=== PATIENT | female | born 1930 | race Hispanic/Latino ===

== ENCOUNTER 2017-04-20 13:51 | Inpatient (IN) | payer MEDICARE ==
[2017-04-20] MEDS ORDERED: NACL 0.9% 1000 ML 1,000 ML IV ONE (15:59)
--- NOTE | 2017-04-20 16:27 | Emergency Department Report ---
ED General Adult HPI - General Chief complaint: Hyperglycemia Stated complaint: HYPERGLYCEMIA Time Seen by Provider: 04/20/17 15:57 Source: family, EMS Mode of arrival: Stretcher Limitations: No Limitations - History of Present Illness Initial comments: The patient was brought by her family for evaluation of elevated blood sugars. No other information is available at this time. -: unknown Severity scale (0 -10): 0 Associated Symptoms: other (patient unable to provide any meaningful history answers yes or no and very hard of hearing). denies: chest pain (does deny chest pain or any other painful area) - Related Data Home Medications Medication Instructions Recorded Confirmed Last Taken Aspirin [Aspirin BABY CHEW TAB] 81 mg PO QDAY 02/08/15 02/08/15 02/08/15 Calcitriol [Rocaltrol] 0.25 mcg PO QDAY 02/08/15 02/08/15 02/08/15 Melatonin 10 mg PO QHS 02/08/15 02/08/15 02/07/15 Memantine HCl [Namenda Xr] 28 mg PO QDAY 02/08/15 02/08/15 02/08/15 NIFEdipine [NIFEdipine ER] 90 mg PO QDAY 02/08/15 02/08/15 02/08/15 Rivastigmine [Exelon Patch 9.5 mg TD QDAY 02/08/15 02/08/15 02/08/15 9.5mg/24hr] Previous Rx's Medication Instructions Recorded Last Taken Type Ondansetron [Zofran ODT TAB] 4 mg PO Q8HR PRN #20 tab.rapdis 01/11/15 Unknown Rx Amoxicillin/K Clav Tab [Augmentin 1 tab PO Q12HR #6 tab 02/11/15 Unknown Rx 875MG TAB] Metoprolol [Lopressor TAB] 12.5 mg PO BID #60 tablet 02/11/15 Unknown Rx QUEtiapine [SEROquel] 50 mg PO QHS #30 tablet 02/11/15 Unknown Rx Allergies Allergy/AdvReac Type Severity Reaction Status Date / Time No Known Allergies Allergy Verified 01/10/15 23:52 ED Review of Systems ROS: Stated complaint: HYPERGLYCEMIA Other details as noted in HPI Comment: Unobtainable due to pts medical conditions ED Past Medical Hx - Past Medical History Previous Medical History?: Yes Hx Hypertension: Yes Hx Diabetes: Yes Hx Renal Disease: Yes (renal insufficiency) Hx Dementia: Yes (Alzheimer's) Hx HIV: No Additional medical history: high cholesterol. UTI - Surgical History Hx Cholecystectomy: Yes Hx Appendectomy: Yes - Social History Smoking Status: Never Smoker Substance Use Type: None - Medications Home Medications: Home Medications Medication Instructions Recorded Confirmed Last Taken Type Ondansetron [Zofran ODT TAB] 4 mg PO Q8HR PRN #20 tab.rapdis 01/11/15 02/08/15 Unknown Rx Aspirin [Aspirin BABY CHEW TAB] 81 mg PO QDAY 02/08/15 02/08/15 02/08/15 History Calcitriol [Rocaltrol] 0.25 mcg PO QDAY 02/08/15 02/08/15 02/08/15 History Melatonin 10 mg PO QHS 02/08/15 02/08/15 02/07/15 History Memantine HCl [Namenda Xr] 28 mg PO QDAY 02/08/15 02/08/15 02/08/15 History NIFEdipine [NIFEdipine ER] 90 mg PO QDAY 02/08/15 02/08/15 02/08/15 History Rivastigmine [Exelon Patch 9.5 mg TD QDAY 02/08/15 02/08/15 02/08/15 History 9.5mg/24hr] Amoxicillin/K Clav Tab [Augmentin 1 tab PO Q12HR #6 tab 02/11/15 Unknown Rx 875MG TAB] Metoprolol [Lopressor TAB] 12.5 mg PO BID #60 tablet 02/11/15 Unknown Rx QUEtiapine [SEROquel] 50 mg PO QHS #30 tablet 02/11/15 Unknown Rx ED Physical Exam - General Limitations: Altered Mental Status General appearance: alert, in no apparent distress - Head Head exam: Present: atraumatic, normocephalic - Eye Eye exam: Present: normal appearance, PERRL, EOMI. Absent: scleral icterus - ENT ENT exam: Present: mucous membranes moist - Neck Neck exam: Present: normal inspection - Respiratory Respiratory exam: Present: normal lung sounds bilaterally. Absent: respiratory distress - Cardiovascular Cardiovascular Exam: Present: regular rate, normal rhythm. Absent: systolic murmur, diastolic murmur, rubs, gallop - GI/Abdominal GI/Abdominal exam: Present: soft, normal bowel sounds. Absent: distended, tenderness, guarding, rebound, rigid - Extremities Exam Extremities exam: Present: normal inspection, full ROM (reasonable range of motion for age), tenderness, normal capillary refill. Absent: pedal edema, joint swelling, calf tenderness - Back Exam Back exam: Present: normal inspection - Neurological Exam Neurological exam: Present: alert, CN II-XII intact (as testable). Absent: oriented X3 (believe aware that she is in the emergency department), motor sensory deficit - Psychiatric Psychiatric exam: Present: normal affect, normal mood - Skin Skin exam: Present: warm, dry, intact, normal color. Absent: rash ED Course Vital Signs 04/20/17 04/20/17 04/20/17 13:57 14:16 14:17 Temperature 97.6 F 99.2 F Pulse Rate 79 68 74 Respiratory 18 13 16 Rate Blood Pressure 167/63 Blood Pressure 131/54 [Left] O2 Sat by Pulse 94 93 95 Oximetry 04/20/17 04/20/17 14:31 15:10 Temperature Pulse Rate 74 Respiratory 11 L Rate Blood Pressure 134/56 Blood Pressure [Left] O2 Sat by Pulse 93 95 Oximetry - Reevaluation(s) Reevaluation #1: Blood sugar was found to be greater than 500. Workup in progress. Admission is anticipated. Patient apparently is on Levemir and was given 40 units this a.m. Per patient's family. 04/20/17 16:34 Reevaluation #2: Discussed with Dr. Cartwright. Patient be admitted for further care and evaluation. 04/20/17 18:34 ED Medical Decision Making - Lab Data Result diagrams: 04/20/17 16:05 04/20/17 16:05 Laboratory Results - last 24 hr 04/20/17 04/20/17 04/20/17 14:26 16:05 16:05 WBC 17.0 H RBC 3.53 L Hgb 11.0 Hct 34.5 MCV 98 H MCH 31 MCHC 32 RDW 13.8 Plt Count 173 Lymph % (Auto) 6.1 L Hand % (Auto) 5.3 Eos % (Auto) 0.0 Baso % (Auto) 0.2 Lymph # 1.0 L Hand # 0.9 H Eos # 0.0 Baso # 0.0 Seg Neutrophils % 88.4 H Seg Neutrophils # 15.0 H PT INR APTT VBG pH Sodium 139 Potassium 4.3 Chloride 101.0 Carbon Dioxide 24 Anion Gap 18 BUN 56 H Creatinine 2.5 H Estimated GFR 18 BUN/Creatinine Ratio 22.40 Glucose 439 H POC Glucose > 500 H Ketones Quantitative Calcium 9.4 Magnesium Total Bilirubin Direct Bilirubin Indirect Bilirubin AST ALT Alkaline Phosphatase Total Protein Albumin Albumin/Globulin Ratio 04/20/17 04/20/17 04/20/17 16:05 16:05 16:05 WBC RBC Hgb Hct MCV MCH MCHC RDW Plt Count Lymph % (Auto) Hand % (Auto) Eos % (Auto) Baso % (Auto) Lymph # Hand # Eos # Baso # Seg Neutrophils % Seg Neutrophils # PT 16.4 H INR 1.33 H APTT 34.4 VBG pH 7.435 H Sodium Potassium Chloride Carbon Dioxide Anion Gap BUN Creatinine Estimated GFR BUN/Creatinine Ratio Glucose POC Glucose Ketones Quantitative Calcium Magnesium 2.00 Total Bilirubin 0.90 Direct Bilirubin < 0.2 Indirect Bilirubin 0.7 AST 19 ALT 18 Alkaline Phosphatase 79 Total Protein 6.2 L Albumin 3.0 L Albumin/Globulin Ratio 0.9 04/20/17 16:05 WBC RBC Hgb Hct MCV MCH MCHC RDW Plt Count Lymph % (Auto) Hand % (Auto) Eos % (Auto) Baso % (Auto) Lymph # Hand # Eos # Baso # Seg Neutrophils % Seg Neutrophils # PT INR APTT VBG pH Sodium Potassium Chloride Carbon Dioxide Anion Gap BUN Creatinine Estimated GFR BUN/Creatinine Ratio Glucose POC Glucose Ketones Quantitative Negative Calcium Magnesium Total Bilirubin Direct Bilirubin Indirect Bilirubin AST ALT Alkaline Phosphatase Total Protein Albumin Albumin/Globulin Ratio - Radiology Data Radiology results: report reviewed interpreted by me: Chest x-ray shows cardiomegaly. Radiologist states edema versus infectious process in the lower lobes. - Medical Decision Making Patient does appear to have a cardiomyopathy on chest x-ray. CHF/pulmonary edema versus lower lobe pneumonia. She is not having apparent cough or respiratory difficulty. She does have a white count of 17,000. Blood cultures and lactic acid level is pending as well as urinalysis and urine culture. Patient will be treated empirically for bilateral pneumonia/possible sepsis. Critical care attestation.: If time is entered above; I have spent that time in minutes in the direct care of this critically ill patient, excluding procedure time. ED Disposition Clinical Impression: Pulmonary infiltrates Hyperglycemia due to type 2 diabetes mellitus Qualifiers: Diabetes mellitus alf insulin use: with terminal worker use Qualified Code(s): E11.65 - Type 2 diabetes mellitus with hyperglycemia; Z79.4 - longterm (current ) use of insulin Leukocytosis Qualifiers: Leukocytosis type: unspecified Qualified Code(s): D72.829 - Elevated white blood cell count, unspecified Acute on chronic renal failure Qualifiers: Acute renal failure type: unspecified Chronic kidney disease stage: stage 3 ( moderate) Qualified Code(s): N17.9 - Acute kidney failure, unspecified; N18.3 - Chronic kidney disease, stage 3 (moderate) Cardiomyopathy Qualifiers: Cardiomyopathy type: unspecified Qualified Code(s): I42.9 - Cardiomyopathy, unspecified Disposition: DC-09 OP ADMIT IP TO THIS HOSP Is pt being admited?: Yes Does the pt Need Aspirin: Yes Condition: Stable Instructions: Diabetes Mellitus Type 2 in Adults (ED) Referrals: PRIMARY CARE, [Primary Care Provider] - 3-5 Days Time of Disposition: 18:36
[2017-04-20 16:44] LABS: BUN/Creatinine Ratio 22.4; Basophils % (Auto) 0.2 % (0.0-1.8); Calcium 9.4 mg/dL (8.4-10.2); Hematocrit 34.5 % (30.3-42.9); Mean Corpuscular HGB Conc 32 % (30-34); Mean Corpuscular Hemoglobin 31 pg (28-32); Mean Corpuscular Volume 98 fl (79-97); Platelet Count 173 K/mm3 (140-440); Potassium 4.3 mmol/L (3.6-5.0); Red Blood Count 3.53 M/mm3 (3.65-5.03); Red Cell Distribution Width 13.8 % (13.2-15.2)
[2017-04-20 16:48] LABS: Alanine Aminotransferase 18 units/L (7-56); Albumin/Globulin Ratio 0.9 %; Alkaline Phosphatase 79 units/L (35-129); Total Protein 6.2 g/dL (6.3-8.2)
[2017-04-20 16:55] LABS: Bilirubin,Direct < 0.2 mg/dL (0-0.2); Bilirubin,Indirect 0.7 mg/dL
[2017-04-20 16:57] LABS: INR 1.33 (0.87-1.13)
[2017-04-20 16:58] LABS: Partial Thromboplastin Time 34.4 Sec. (24.2-36.6)
--- NOTE | 2017-04-20 17:38 | XRay Report ---
FINAL REPORT EXAM: XR CHEST 1V AP HISTORY: DALY TECHNIQUE: Single-view chest PRIORS: None. FINDINGS: Lung volumes are diminished. There is increased opacity in the lung bases. Heart size is within normal limits. Aortic calcifications are noted. No acute osseous abnormality is identified. IMPRESSION: 1. There is increased opacity in the lung bases. This may be secondary to infection or edema. There may be a component of atelectasis. The appearance may be exaggerated by diminished lung volumes.
[2017-04-20] MEDS ORDERED: BABY ASPIRIN PO ONE (18:37)
--- NOTE | 2017-04-20 18:47 | History and Physical Report ---
History of Present Illness Date of examination: 04/20/17 Date of admission: 04/20/17 Chief complaint: Elevated blood sugars History of present illness: This is an 87-year-old female who presents with significant past medical history diabetes mellitus type 2, hypertension, chronic kidney disease, Alzheimer's dementia and anemia of CKD (baseline creatinine 2.0) with chief complaint of hyperglycemia. Patient reportedly has had elevated blood glucose ranging from 200-400 for the past 2 weeks. All of the history was obtained from the granddaughter who is primary caregiver. Patient has had reportedly no complaints. No fever or chills. No nausea or vomiting. No cough or cold-like symptoms. No headache or visual disturbances. The granddaughter reports that the patient does have frequent UTIs and has been known to have significant hyperglycemia related to this. No chest pain or shortness of breath. Past History Past Medical History: anemia, diabetes, hypertension, renal failure, other ( Alzheimer's dementia) Past Surgical History: No surgical history Social history: no significant social history Family history: no significant family history Medications and Allergies Allergies Allergy/AdvReac Type Severity Reaction Status Date / Time No Known Allergies Allergy Verified 01/10/15 23:52 Home Medications Medication Instructions Recorded Confirmed Last Taken Type Ondansetron [Zofran ODT TAB] 4 mg PO Q8HR PRN #20 tab.rapdis 01/11/15 02/08/15 Unknown Rx Aspirin [Aspirin BABY CHEW TAB] 81 mg PO QDAY 02/08/15 02/08/15 02/08/15 History Calcitriol [Rocaltrol] 0.25 mcg PO QDAY 02/08/15 02/08/15 02/08/15 History Melatonin 10 mg PO QHS 02/08/15 02/08/15 02/07/15 History Memantine HCl [Namenda Xr] 28 mg PO QDAY 02/08/15 02/08/15 02/08/15 History NIFEdipine [NIFEdipine ER] 90 mg PO QDAY 02/08/15 02/08/15 02/08/15 History Rivastigmine [Exelon Patch 9.5 mg TD QDAY 02/08/15 02/08/15 02/08/15 History 9.5mg/24hr] Amoxicillin/K Clav Tab [Augmentin 1 tab PO Q12HR #6 tab 02/11/15 Unknown Rx 875MG TAB] Metoprolol [Lopressor TAB] 12.5 mg PO BID #60 tablet 02/11/15 Unknown Rx QUEtiapine [SEROquel] 50 mg PO QHS #30 tablet 02/11/15 Unknown Rx Active Meds: Active Medications Azithromycin 500 mg/ Sodium (Chloride) 250 mls @ 250 mls/hr IV ONCE ONE Stop: 04/20/17 19:26 Piperacillin Sod/Tazobactam Sod (Zosyn/Ns 3.375gm/50ml) 50 mls @ 100 mls/hr IV Q6HR NATE PRN Reason: Protocol Vancomycin HCl (Vancomycin Pharmacy To Dose) 1 each IV PKCONSULT NATE PRN Reason: Protocol Review of Systems ROS unobtainable: due to mental status Exam - Constitutional Vitals: Temp Pulse Resp BP Pulse Ox 99.2 F 74 11 L 134/56 95 04/20/17 14:17 04/20/17 14:31 04/20/17 14:31 04/20/17 14:31 04/20/17 15:10 General appearance: Present: no acute distress, well-nourished - EENT Eyes: Present: PERRL ENT: hearing intact, clear oral mucosa - Neck Neck: Present: supple, normal ROM - Respiratory Respiratory effort: normal Respiratory: bilateral: CTA - Cardiovascular Heart Sounds: Present: S1 & S2. Absent: rub, click - Extremities Extremities: pulses symmetrical, No edema Peripheral Pulses: within normal limits - Abdominal General gastrointestinal: Present: soft, non-tender, non-distended, normal bowel sounds Female genitourinary: Present: normal - Integumentary Integumentary: Present: clear, warm, dry - Musculoskeletal Musculoskeletal: gait normal, strength equal bilaterally - Psychiatric Psychiatric: appropriate mood/affect, intact judgment & insight - Neurologic Neurologic: CNII-XII intact, moves all extremities Results - Labs CBC & Chem 7: 04/20/17 16:05 04/20/17 16:05 Labs: Laboratory Last Values WBC 17.0 K/mm3 (4.5-11.0) H 04/20/17 16:05 RBC 3.53 M/mm3 (3.65-5.03) L 04/20/17 16:05 Hgb 11.0 gm/dl (10.1-14.3) 04/20/17 16:05 Hct 34.5 % (30.3-42.9) 04/20/17 16:05 MCV 98 fl (79-97) H 04/20/17 16:05 MCH 31 pg (28-32) 04/20/17 16:05 MCHC 32 % (30-34) 04/20/17 16:05 RDW 13.8 % (13.2-15.2) 04/20/17 16:05 Plt Count 173 K/mm3 (140-440) 04/20/17 16:05 Lymph % (Auto) 6.1 % (13.4-35.0) L 04/20/17 16:05 [place] % (Auto) 5.3 % (0.0-7.3) 04/20/17 16:05 Eos % (Auto) 0.0 % (0.0-4.3) 04/20/17 16:05 Baso % (Auto) 0.2 % (0.0-1.8) 04/20/17 16:05 Lymph # 1.0 K/mm3 (1.2-5.4) L 04/20/17 16:05 [place] # 0.9 K/mm3 (0.0-0.8) H 04/20/17 16:05 Eos # 0.0 K/mm3 (0.0-0.4) 04/20/17 16:05 Baso # 0.0 K/mm3 (0.0-0.1) 04/20/17 16:05 Seg Neutrophils % 88.4 % (40.0-70.0) H 04/20/17 16:05 Seg Neutrophils # 15.0 K/mm3 (1.8-7.7) H 04/20/17 16:05 PT 16.4 Sec. (12.2-14.9) H 04/20/17 16:05 INR 1.33 (0.87-1.13) H 04/20/17 16:05 APTT 34.4 Sec. (24.2-36.6) 04/20/17 16:05 VBG pH 7.435 (7.320-7.420) H 04/20/17 16:05 Sodium 139 mmol/L (137-145) 04/20/17 16:05 Potassium 4.3 mmol/L (3.6-5.0) 04/20/17 16:05 Chloride 101.0 mmol/L (98-107) 04/20/17 16:05 Carbon Dioxide 24 mmol/L (22-30) 04/20/17 16:05 Anion Gap 18 mmol/L 04/20/17 16:05 BUN 56 mg/dL (7-17) H 04/20/17 16:05 Creatinine 2.5 mg/dL (0.7-1.2) H 04/20/17 16:05 Estimated GFR 18 ml/min 04/20/17 16:05 BUN/Creatinine Ratio 22.40 % 04/20/17 16:05 Glucose 439 mg/dL (65-100) H 04/20/17 16:05 POC Glucose > 500 (70-105) H 04/20/17 14:26 Ketones Quantitative Negative (Negative) 04/20/17 16:05 Calcium 9.4 mg/dL (8.4-10.2) 04/20/17 16:05 Magnesium 2.00 mg/dL (1.7-2.3) 04/20/17 16:05 Total Bilirubin 0.90 mg/dL (0.1-1.2) 04/20/17 16:05 Direct Bilirubin < 0.2 mg/dL (0-0.2) 04/20/17 16:05 Indirect Bilirubin 0.7 mg/dL 04/20/17 16:05 AST 19 units/L (5-40) 04/20/17 16:05 ALT 18 units/L (7-56) 04/20/17 16:05 Alkaline Phosphatase 79 units/L (35-129) 04/20/17 16:05 Total Protein 6.2 g/dL (6.3-8.2) L 04/20/17 16:05 Albumin 3.0 g/dL (3.9-5) L 04/20/17 16:05 Albumin/Globulin Ratio 0.9 % 04/20/17 16:05 Assessment and Plan Assessment and plan: Sepsis. The patient will be placed on the sepsis pathway. Patient will be started on antibiotics. Etiology is likely secondary to UTI. Check urinalysis , urine culture, blood culture and lactic acid levels. Diabetes mellitus type 2, uncontrolled. Patient will be placed on her home regimen of Levemir 30 units every morning. We will start sliding scale and Accu -Cheks every before meals and daily at bedtime. Toxic metabolic encephalopathy. Etiology secondary to above. Treat underlying causes. Patient does have baseline Alzheimer's dementia. Alzheimer's dementia. Hypertension. Resume antihypertensive medications. Acute renal failure superimposed on CKD IV. Patient has baseline creatinine of 2.0. IV fluid hydration. Nephrology consultation. DVT prophylaxis. Lovenox.
[2017-04-20] MEDS ORDERED: ZOSYN/NS 3.375GM/50ML 3.375 GM/50 ML BAG IV ONE (19:00)
[2017-04-20] MEDS ORDERED: VANCOMYCIN PHARMACY TO DOSE IV SCH (19:00)
[2017-04-20] MEDS ORDERED: ZITHROMAX 500 MG in NACL 0.9% 250ML 250 ML IV ONE (19:00)
[2017-04-20 19:23] LABS: INR 1.33 (0.87-1.13)
[2017-04-20 19:24] LABS: Partial Thromboplastin Time 34.8 Sec. (24.2-36.6)
[2017-04-20 19:27] LABS: Bacteria,Urine 2+ /HPF (Negative); Bilirubin,Urine NEG (Negative); Blood,Urine NEG (Negative); Ketones,Urine NEG (Negative); Leukocyte Esterase,Urine NEG (Negative); Nitrite,Urine POS (Negative); Urobilinogen,Urine < 2.0 mg/dL (<2.0)
[2017-04-20] MEDS ORDERED: VANCOMYCIN VIAL 1,250 MG in NACL 0.9% 250ML 250 ML IV SCH (20:00)
[2017-04-21] MEDS: ZOSYN/NS 2.25 GM/50ML 2.25 GM/50 ML BAG IV SCH ×4 (03:02→21:13)
[2017-04-21] MEDS: FEOSOL PO SCH (09:17)
--- NOTE | 2017-04-21 11:37 | Progress Note ---
Assessment and Plan Sepsis. - placed on sepsis protocol - Patient placed on antibiotics. - Etiology is likely secondary to UTI. - follow urinalysis, urine culture, blood culture and lactic acid levels. Diabetes mellitus type 2, uncontrolled. - placed on her home regimen of Levemir 30 units every morning. - cont on sliding scale and Accu-Cheks every before meals and daily at bedtime. Toxic metabolic encephalopathy. - Etiology secondary to sepsis. Now back to baseline - Treat underlying causes. Patient also have baseline Alzheimer's dementia. Alzheimer's dementia. - supportive care Hypertension. - Resumed antihypertensive medications. Acute renal failure superimposed on CKD IV. - Patient has baseline creatinine of 2.0. IV fluid hydration. Nephrology consulted. - likely from dehydration DVT prophylaxis. Lovenox. Cose status DNR Brief history: This is an 87-year-old female who presents with significant past medical history diabetes mellitus type 2, hypertension, chronic kidney disease, Alzheimer's dementia and anemia of CKD (baseline creatinine 2.0) with chief complaint of hyperglycemia. She also noted to have change in mental status on admission. Subjective Date of service: 04/21/17 Interval history: Patient seen and examined. Medical records and medication list reviewed. No acute event overnight noted by the RN. Patient denies any chest pain or difficulty breathing. Patient is tolerating diet. Discussed plan of care at bedside with patient's family. Objective - Exam Narrative Exam: GENERAL: well-developed and well-nourished WF lying on bed appeared to be in no discomfort. HEENT: Normocephalic. Atraumatic. No conjunctival congestion or icterus. Patient has moist mucous membranes. NECK: Supple. Trachea midline. CHEST/LUNGS: Clear to auscultated bilaterally, breathing nonlabored. No wheezes crackles or rhonchi. HEART/CARDIOVASCULAR: Regular in rate and rhythm. S1 and S2 positive. ABDOMEN: Abdomen is soft, nontender. Patient has normal bowel sounds. SKIN: There is no rash. Warm and dry. NEURO: No focal motor deficit. Follows command. oriented to place and person MUSCULOSKELETAL: No joint effusion or tenderness. EXTRIMITY: No edema, no cyanosis or clubbing. PSYCH: Cooperative. - Constitutional Vitals: Vital Signs - 12hr 04/21/17 04/21/17 04/21/17 01:15 03:40 03:43 Temperature 97.8 F Pulse Rate 60 61 Pulse Rate [ 70 Right Radial] Respiratory 20 18 Rate Blood Pressure 117/43 O2 Sat by Pulse 91 Oximetry 04/21/17 04/21/17 04/21/17 05:31 08:23 09:02 Temperature 98.6 F 98.0 F Pulse Rate 62 62 Pulse Rate [ Right Radial] Respiratory 20 18 Rate Blood Pressure 131/48 147/57 O2 Sat by Pulse 90 92 92 Oximetry - Labs CBC & Chem 7: 04/22/17 07:18 04/22/17 07:18 Labs: Abnormal lab results 04/20/17 04/20/17 04/21/17 Range/Units 18:24 18:24 06:37 PT 16.4 H (12.2-14.9) Sec. INR 1.33 H (0.87-1.13) POC Glucose 159 H (70-105) NT-Pro-B Natriuret Pep 4551 H (0-900) pg/mL
[2017-04-21] MEDS ORDERED: NON-FORMULARY (Memantine Hcl [Namenda Xr] 28 MG) PO SCH (11:45)
[2017-04-21] MEDS: NAMENDA PO SCH ×2 (12:17→21:13)
[2017-04-21] MEDS: EXELON TD SCH (12:18)
[2017-04-22] MEDS: ZOSYN/NS 2.25 GM/50ML 2.25 GM/50 ML BAG IV SCH ×4 (03:09→21:14)
[2017-04-22 08:10] LABS: Basophils % (Auto) 0.2 % (0.0-1.8); Eosinophils % (Auto) 2.1 % (0.0-4.3); Hematocrit 29.9 % (30.3-42.9); Hemoglobin 10.1 gm/dl (10.1-14.3); Mean Corpuscular HGB Conc 34 % (30-34); Mean Corpuscular Hemoglobin 32 pg (28-32); Mean Corpuscular Volume 96 fl (79-97); Platelet Count 157 K/mm3 (140-440); Red Blood Count 3.13 M/mm3 (3.65-5.03); Red Cell Distribution Width 13.8 % (13.2-15.2); White Blood Count 11.3 K/mm3 (4.5-11.0)
[2017-04-22 08:29] LABS: Chloride 111.1 mmol/L (98-107)
[2017-04-22] MEDS: EXELON TD SCH (10:17)
[2017-04-22] MEDS: ROCALTROL PO SCH (10:17)
[2017-04-22] MEDS: NAMENDA PO SCH ×2 (10:17→21:16)
[2017-04-22] MEDS: FEOSOL PO SCH (10:17)
--- NOTE | 2017-04-22 15:43 | Progress Note ---
Assessment and Plan Sepsis with UTI. - placed on sepsis protocol - Patient placed on antibiotics. - Etiology is likely secondary to UTI. - Gm negative rods in urine culture, negative blood culture - pt has h/o recurrent UTI, will cont iv abx till final cx report available Diabetes mellitus type 2, uncontrolled. - placed on her home regimen of Levemir 15 units every morning. - cont on sliding scale and Accu-Cheks every before meals and daily at bedtime. Toxic metabolic encephalopathy. - Etiology secondary to sepsis. Now back to baseline - Treat underlying causes. Patient also have baseline Alzheimer's dementia. Alzheimer's dementia. - supportive care, resumed home meds (Namenda) Hypertension. 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 - Patient has baseline creatinine of 2.0. IV fluid hydration. Nephrology consulted. - likely from dehydration Hypernatremia - place on hypotonic solution DVT prophylaxis. Lovenox. Code status DNR Brief history: This is an 87-year-old female who presents with significant past medical history diabetes mellitus type 2, hypertension, chronic kidney disease, Alzheimer's dementia and anemia of CKD (baseline creatinine 2.0) with chief complaint of hyperglycemia. She also noted to have change in mental status on admission. Microbiology 04/20/17 18:40 Peripheral/Venous Blood Culture - Preliminary NO GROWTH AFTER 48 HOURS 04/20/17 18:24 Peripheral/Venous Blood Culture - Preliminary NO GROWTH AFTER 48 HOURS 04/20/17 18:54 Urine,Catheterized - Straight Catheter Urine Culture - Preliminary Gram Negative Zander Subjective Date of service: 04/22/17 Interval history: Patient seen and examined. Medical records and medication list reviewed. No acute event overnight noted by the RN. Patient denies any chest pain or difficulty breathing. Patient is tolerating diet. Discussed plan of care at bedside with patient's family. She is almost bedbound and on wheel chair at her baseline Objective - Exam Narrative Exam: GENERAL: well-developed and well-nourished WF lying on bed appeared to be in no discomfort. HEENT: Normocephalic. Atraumatic. No conjunctival congestion or icterus. Patient has moist mucous membranes. NECK: Supple. Trachea midline. CHEST/LUNGS: Clear to auscultated bilaterally, breathing nonlabored. No wheezes crackles or rhonchi. HEART/CARDIOVASCULAR: Regular in rate and rhythm. S1 and S2 positive. ABDOMEN: Abdomen is soft, nontender. Patient has normal bowel sounds. SKIN: There is no rash. Warm and dry. NEURO: No focal motor deficit. Follows command. oriented to place and person MUSCULOSKELETAL: No joint effusion or tenderness. EXTRIMITY: No edema, no cyanosis or clubbing. PSYCH: Cooperative. - Constitutional Vitals: Vital Signs - 12hr 04/22/17 04/22/17 04/22/17 05:23 07:50 11:45 Temperature 97.4 F L 98.1 F 98.1 F Pulse Rate 84 66 76 Respiratory 20 20 Rate Blood Pressure 120/49 147/60 Blood Pressure 115/60 [Left] O2 Sat by Pulse 92 94 Oximetry - Labs CBC & Chem 7: 04/22/17 07:18 04/22/17 07:18 Labs: Abnormal lab results 04/21/17 04/22/17 04/22/17 Range/Units 22:08 06:33 07:18 WBC 11.3 H (4.5-11.0) K/mm3 RBC 3.13 L (3.65-5.03) M/mm3 Hct 29.9 L (30.3-42.9) % Lymph % (Auto) 10.5 L (13.4-35.0) % Seg Neutrophils % 82.6 H (40.0-70.0) % Seg Neutrophils # 9.4 H (1.8-7.7) K/mm3 Sodium (137-145) mmol/L Chloride (98-107) mmol/L BUN (7-17) mg/dL Creatinine (0.7-1.2) mg/dL Glucose (65-100) mg/dL POC Glucose 328 H 146 H (70-105) 04/22/17 04/22/17 04/22/17 Range/Units 07:18 07:55 11:52 WBC (4.5-11.0) K/mm3 RBC (3.65-5.03) M/mm3 Hct (30.3-42.9) % Lymph % (Auto) (13.4-35.0) % Seg Neutrophils % (40.0-70.0) % Seg Neutrophils # (1.8-7.7) K/mm3 Sodium 149 H D (137-145) mmol/L Chloride 111.1 H (98-107) mmol/L BUN 42 H (7-17) mg/dL Creatinine 2.0 H (0.7-1.2) mg/dL Glucose 132 H (65-100) mg/dL POC Glucose 142 H 256 H (70-105)
[2017-04-23] MEDS: NACL 0.45% 1000 ML 1,000 ML IV SCH ×2 (00:31→16:46)
[2017-04-23] MEDS: ZOSYN/NS 2.25 GM/50ML 2.25 GM/50 ML BAG IV SCH ×4 (02:54→21:17)
[2017-04-23 06:09] LABS: Basophils % (Auto) 0.5 % (0.0-1.8); Eosinophils % (Auto) 6.2 % (0.0-4.3); Mean Corpuscular HGB Conc 33 % (30-34); Mean Corpuscular Hemoglobin 32 pg (28-32); Mean Corpuscular Volume 96 fl (79-97); Platelet Count 160 K/mm3 (140-440); Red Blood Count 3.13 M/mm3 (3.65-5.03); Red Cell Distribution Width 14.3 % (13.2-15.2); White Blood Count 6.8 K/mm3 (4.5-11.0)
[2017-04-23 06:27] LABS: BUN/Creatinine Ratio 15.45; Calcium 8.7 mg/dL (8.4-10.2); Chloride 108.6 mmol/L (98-107); Potassium 3.7 mmol/L (3.6-5.0)
[2017-04-23] MEDS ORDERED: LEVEMIR 15 UNIT SUB-Q SCH (10:00)
[2017-04-23] MEDS: BABY ASPIRIN PO SCH (11:14)
[2017-04-23] MEDS: LOPRESSOR PO SCH ×2 (12:15→21:19)
[2017-04-23] MEDS: LEVEMIR SUB-Q SCH (12:15)
[2017-04-23] MEDS: NAMENDA PO SCH ×2 (12:15→21:20)
[2017-04-23] MEDS: ROCALTROL PO SCH (12:15)
[2017-04-23] MEDS: ZOLOFT PO SCH (12:15)
[2017-04-23] MEDS: EXELON TD SCH (12:16)
[2017-04-23] MEDS: FEOSOL PO SCH (12:16)
--- NOTE | 2017-04-23 19:26 | Progress Note ---
Assessment and Plan Assessment and plan: Sepsis with UTI. - placed on sepsis protocol - Patient placed on antibiotics. - Etiology is likely secondary to UTI. - Gm negative rods in urine culture, negative blood culture - pt has h/o recurrent UTI, will cont iv abx till final cx report available Toxic metabolic encephalopathy. - Etiology secondary to sepsis. Now back to baseline - Treat underlying causes. Patient also have baseline Alzheimer's dementia. Alzheimer's dementia. - supportive care, resumed home meds (Namenda) Diabetes mellitus type 2, uncontrolled. - placed on her home regimen of Levemir 15 units every morning. - cont on sliding scale and Accu-Cheks every before meals and daily at bedtime. Hypertension. 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 - Patient has baseline creatinine of 2.0. IV fluid hydration. Nephrology consulted. - likely from dehydration Hypernatremia - place on hypotonic solution Obesity DVT prophylaxis. Lovenox. Code status DNR Brief history: This is an 87-year-old female who presents with significant past medical history diabetes mellitus type 2, hypertension, chronic kidney disease, Alzheimer's dementia and anemia of CKD (baseline creatinine 2.0) with chief complaint of hyperglycemia. She also noted to have change in mental status on admission. History Interval history: Feeling better, mental status back to baseline per family member Hospitalist Physical - Constitutional Vitals: Temp Pulse Resp BP Pulse Ox 98.3 F 56 L 20 156/57 94 04/23/17 16:28 04/23/17 16:28 04/23/17 16:28 04/23/17 16:28 04/23/17 16:28 General appearance: Present: no acute distress, well-nourished Results - Labs CBC & Chem 7: 04/23/17 05:23 04/23/17 05:23 Labs: Laboratory Last Values WBC 6.8 K/mm3 (4.5-11.0) 04/23/17 05:23 RBC 3.13 M/mm3 (3.65-5.03) L 04/23/17 05:23 Hgb 10.0 gm/dl (10.1-14.3) L 04/23/17 05:23 Hct 30.0 % (30.3-42.9) L 04/23/17 05:23 MCV 96 fl (79-97) 04/23/17 05:23 MCH 32 pg (28-32) 04/23/17 05:23 MCHC 33 % (30-34) 04/23/17 05:23 RDW 14.3 % (13.2-15.2) 04/23/17 05:23 Plt Count 160 K/mm3 (140-440) 04/23/17 05:23 Lymph % (Auto) 17.1 % (13.4-35.0) 04/23/17 05:23 [place] % (Auto) 6.2 % (0.0-7.3) 04/23/17 05:23 Eos % (Auto) 6.2 % (0.0-4.3) H 04/23/17 05:23 Baso % (Auto) 0.5 % (0.0-1.8) 04/23/17 05:23 Lymph # 1.2 K/mm3 (1.2-5.4) 04/23/17 05:23 [place] # 0.4 K/mm3 (0.0-0.8) 04/23/17 05:23 Eos # 0.4 K/mm3 (0.0-0.4) 04/23/17 05:23 Baso # 0.0 K/mm3 (0.0-0.1) 04/23/17 05:23 Seg Neutrophils % 70.0 % (40.0-70.0) 04/23/17 05:23 Seg Neutrophils # 4.8 K/mm3 (1.8-7.7) 04/23/17 05:23 PT 16.4 Sec. (12.2-14.9) H 04/20/17 18:24 INR 1.33 (0.87-1.13) H 04/20/17 18:24 APTT 34.8 Sec. (24.2-36.6) 04/20/17 18:24 VBG pH 7.435 (7.320-7.420) H 04/20/17 16:05 Sodium 144 mmol/L (137-145) 04/23/17 05:23 Potassium 3.7 mmol/L (3.6-5.0) 04/23/17 05:23 Chloride 108.6 mmol/L (98-107) H 04/23/17 05:23 Carbon Dioxide 24 mmol/L (22-30) 04/23/17 05:23 Anion Gap 15 mmol/L 04/23/17 05:23 BUN 34 mg/dL (7-17) H 04/23/17 05:23 Creatinine 2.2 mg/dL (0.7-1.2) H 04/23/17 05:23 Estimated GFR 21 ml/min 04/23/17 05:23 BUN/Creatinine Ratio 15.45 % 04/23/17 05:23 Glucose 129 mg/dL (65-100) H 04/23/17 05:23 POC Glucose 177 (70-105) H 04/23/17 17:42 Ketones Quantitative Negative (Negative) 04/20/17 16:05 Calcium 8.7 mg/dL (8.4-10.2) 04/23/17 05:23 Magnesium 2.00 mg/dL (1.7-2.3) 04/20/17 16:05 Total Bilirubin 0.90 mg/dL (0.1-1.2) 04/20/17 16:05 Direct Bilirubin < 0.2 mg/dL (0-0.2) 04/20/17 16:05 Indirect Bilirubin 0.7 mg/dL 04/20/17 16:05 AST 19 units/L (5-40) 04/20/17 16:05 ALT 18 units/L (7-56) 04/20/17 16:05 Alkaline Phosphatase 79 units/L (35-129) 04/20/17 16:05 NT-Pro-B Natriuret Pep 4551 pg/mL (0-900) H 04/20/17 18:24 Total Protein 6.2 g/dL (6.3-8.2) L 04/20/17 16:05 Albumin 3.0 g/dL (3.9-5) L 04/20/17 16:05 Albumin/Globulin Ratio 0.9 % 04/20/17 16:05 Urine Color Yellow (Yellow) 04/20/17 18:54 Urine Turbidity Clear (Clear) 04/20/17 18:54 Urine pH 6.0 (5.0-7.0) 04/20/17 18:54 Ur Specific [place] 1.016 (1.003-1.030) 04/20/17 18:54 Urine Protein 30 mg/dl mg/dL (Negative) 04/20/17 18:54 Urine Glucose (UA) >=500 mg/dL (Negative) 04/20/17 18:54 Urine Ketones Neg mg/dL (Negative) 04/20/17 18:54 Urine Blood Neg (Negative) 04/20/17 18:54 Urine Nitrite Pos (Negative) 04/20/17 18:54 Urine Bilirubin Neg (Negative) 04/20/17 18:54 Urine Urobilinogen < 2.0 mg/dL (<2.0) 04/20/17 18:54 Ur Leukocyte Esterase Neg (Negative) 04/20/17 18:54 Urine WBC (Auto) 3.0 /HPF (0.0-6.0) 04/20/17 18:54 Urine RBC (Auto) 1.0 /HPF (0.0-6.0) 04/20/17 18:54 Urine Bacteria (Auto) 2+ /HPF (Negative) 04/20/17 18:54
[2017-04-24] MEDS: ZOSYN/NS 2.25 GM/50ML 2.25 GM/50 ML BAG IV SCH ×2 (01:24→08:00)
[2017-04-24] MEDS: NACL 0.45% 1000 ML 1,000 ML IV SCH (06:02)
--- NOTE | 2017-04-24 09:40 | Discharge Summary ---
Providers - Providers Date of Admission: 04/20/17 17:46 Date of discharge: 04/24/17 Attending physician: ISMAEL MARTI 04/23/17 14:29 Physical Therapy Evaluation and Treat [CONS] Routine Comment: Reason For Exam: debility Primary care physician: WAREHOUSE MATERIAL HANDLER Hospitalization Condition: Stable Hospital course: Sepsis with UTI. - placed on sepsis protocol - Patient placed on antibiotics. - Etiology is likely secondary to UTI. - Gm negative rods in urine culture, negative blood culture - pt has h/o recurrent UTI, will cont iv abx till final cx report available Toxic metabolic encephalopathy. - Etiology secondary to sepsis. Now back to baseline - Treat underlying causes. Patient also have baseline Alzheimer's dementia. Alzheimer's dementia. - supportive care, resumed home meds (Namenda) Diabetes mellitus type 2, uncontrolled. - placed on her home regimen of Levemir 15 units every morning. - cont on sliding scale and Accu-Cheks every before meals and daily at bedtime. Hypertension. 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 - Patient has baseline creatinine of 2.0. IV fluid hydration. Nephrology consulted. - likely from dehydration Hypernatremia - place on hypotonic solution Obesity Disposition: [id number] HOME UNDER HOME [facility] Time spent for discharge: 35 min Core Measure Documentation - Palliative Care Palliative Care/ Comfort Measures: Not Applicable - Core Measures Any of the following diagnoses?: none Exam - Constitutional Vitals: Temp Pulse Resp BP Pulse Ox 97.5 F L 62 20 141/65 91 04/24/17 05:29 04/24/17 05:29 04/24/17 05:29 04/24/17 05:29 04/24/17 05:29 Plan Activity: advance as tolerated, fall precautions Diet: low cholesterol, low salt Follow up with: PRIMARY CARE, [Primary Care Provider] - 3-5 Days Prescriptions: Cefuroxime [Ceftin] 250 mg PO Q12H #10 tablet Ferrous Sulfate [Feosol 325 MG tab] 325 mg PO QDAY #30 tablet
[2017-04-24] MEDS: FEOSOL PO SCH (10:00)
[2017-04-24] MEDS: LOPRESSOR PO SCH (10:01)
[2017-04-24] MEDS: ROCALTROL PO SCH (10:01)
[2017-04-24] MEDS: NAMENDA PO SCH (10:02)
[2017-04-24] MEDS: BABY ASPIRIN PO SCH (10:02)
[2017-04-24] MEDS: ZOLOFT PO SCH (10:02)
[2017-04-24] MEDS: EXELON TD SCH (10:03)
[2017-04-24] MEDS: LEVEMIR SUB-Q SCH (10:04)
[2017-04-24 10:06] VITALS: BP 157/67
[2017-04-24] MEDS ORDERED: MACROBID PO SCH (13:00)
== END 2017-04-24 14:20 | disposition home health service (06) | DRG 871 ==
LOC: ED 13:51 → 4A 17:46
PROVIDERS: ADMIT Hospitalist; ATTEND Internal Medicine
DX: A41.9 Sepsis, unspecified organism (principal); G92 Toxic encephalopathy; N17.9 Acute kidney failure, unspecified; N39.0 Urinary tract infection, site not specified; N18.4 Chronic kidney disease, stage 4 (severe); E87.0 Hyperosmolality and hypernatremia; Z68.42 Body mass index [BMI] 45.0-49.9, adult; I42.9 Cardiomyopathy, unspecified; G30.9 Alzheimer's disease, unspecified; F02.80 Dementia in other diseases classified elsewhere, unspecified severity, without behavioral disturbance, psychotic disturbance, mood disturbance, and anxiety; E86.0 Dehydration; I12.9 Hypertensive chronic kidney disease with stage 1 through stage 4 chronic kidney disease, or unspecified chronic kidney disease; E11.65 Type 2 diabetes mellitus with hyperglycemia; E11.22 Type 2 diabetes mellitus with diabetic chronic kidney disease; E78.00 Pure hypercholesterolemia, unspecified; Z66 Do not resuscitate; E66.9 Obesity, unspecified; B96.20 Unspecified Escherichia coli [E. coli] as the cause of diseases classified elsewhere; Z87.440 Personal history of urinary (tract) infections; Z79.82 Long term (current) use of aspirin; Z79.899 Other long term (current) drug therapy; Z90.49 Acquired absence of other specified parts of digestive tract; Z99.2 Dependence on renal dialysis
CPT/HCPCS: 36415; 71010; 80048; 80074; 81001; 82010; 82805; 82962; 83735; 83880; 85025; 85610; 85730; 87040; 87076; 87086; 87186; 93005; 93010; 96361; 96374; G8978-GP; G8979-GP; J0456; J1815; J1818; J2543; J3370; J7030; J7050

== ENCOUNTER 2017-05-25 15:16 | Emergency (ER) | payer MEDICARE ==
[2017-05-25 16:24] LABS: Hemoglobin 11.4 gm/dl (10.1-14.3); Red Blood Count 3.59 M/mm3 (3.65-5.03); White Blood Count 11.1 K/mm3 (4.5-11.0)
[2017-05-25 16:42] LABS: Calcium 9.4 mg/dL (8.4-10.2); Chloride 103.4 mmol/L (98-107); Potassium 4.1 mmol/L (3.6-5.0)
[2017-05-25 16:49] LABS: Hematocrit 35.7 % (30.3-42.9); Mean Corpuscular HGB Conc 32 % (30-34); Mean Corpuscular Hemoglobin 31 pg (28-32); Mean Corpuscular Volume 97 fl (79-97); Platelet Count 190 K/mm3 (140-440); Red Cell Distribution Width 14.2 % (13.2-15.2)
--- NOTE | 2017-05-25 18:04 | Cat Scan Report ---
FINAL REPORT PROCEDURE: CT ABDOMEN PELVIS WO CON TECHNIQUE: Computerized axial tomography of the abdomen and pelvis was performed without intravenous contrast. This study is performed without intravascular contrast material and its sensitivity for abdominal and pelvic pathology, including neoplasms, inflammation, abscess, free fluid, thrombosis, arterial dissection and infarction, is reduced compared with a contrast enhanced study. HISTORY: back pain COMPARISON: Chest x-ray dated April 20, 2017 FINDINGS: Likely mild hypoventilatory changes are seen in the lung bases. Very mild pneumonia cannot be completely excluded at the right lung base, though. There is a moderate-sized hiatus hernia. Liver and spleen appear normal. Patient has had prior cholecystectomy. Partial fatty replacement of the pancreas is seen. Right adrenal gland and abdominal aorta are normal in size. There is a possible 1.9 cm left adrenal nodule measuring 2 Hounsfield units. This is likely benign but MRI is recommended for confirmation. Artifacts limit evaluation of the kidneys. Kidneys appear small measuring under 7 centimeters in length. No ureteral stones are seen. There is mild air in the urinary bladder which is likely from prior catheterization. No bladder wall thickening is seen. No adnexal masses are seen. There is no free pelvic fluid. Scattered colonic diverticula are seen without diverticulitis. Mild constipation may be present. Normal appendix is seen. No evidence of bowel obstruction is seen. Moderate osteoarthritic changes are suspect in the hips. No lumbar compression fracture is seen but moderate spondylosis is suggested throughout the lumbar spine. Vacuum phenomena is seen in the disc spaces at L5-S1, L3-4, and T12-L1. IMPRESSION: 1.9 cm left adrenal nodule is likely a benign adenoma but confirmation with MRI is recommended. Probable hypoventilatory changes are seen at the lung bases but mild pneumonia is not excluded at the right lung base. Moderate diffuse lumbar spondylosis is seen. There may be mild diffuse constipation.
--- NOTE | 2017-05-25 18:11 | Emergency Department Report ---
ED General Adult HPI - General Chief complaint: Back Pain/Injury Stated complaint: BACK PAIN,NO URINATION W/IN 3 DAYS Time Seen by Provider: 05/25/17 16:24 Source: EMS Mode of arrival: Stretcher Limitations: Altered Mental Status, Physical Limitation - History of Present Illness Initial comments: The patient has a history of lower back pain which is chronic. She also has a history of dementia. She told her design consultant earlier today she was having back pain which somehow the care of taker thought might be unusual. Fretted String Instrument Repairer will also thought that she has had a decreased urine output over the past 24 hours. Patient herself does not complain of anything specific now. She denies pain. Fretted String Instrument Repairer denies fever chills nausea vomiting or diarrhea. Patient has history of Escherichia coli UTI. She was treated with Ceftin after her March 2017 hospitalization. I reviewed the patient's previous medical records. I did not find that she had a CT of her abdomen and pelvis although she has chronic renal insufficiency and UTI. I did not see an ultrasound either. Fretted String Instrument Repairer states that she does not think she has had one in the past many years but she has been caring for her. -: hour(s) Location: back (lower) Radiation: non-radiation ( apparently not) Quality: other (could not describe) Consistency: now resolved Worsens with: none Associated Symptoms: denies other symptoms, other (design consultant believes decreased urine output) - Related Data Home Medications Medication Instructions Recorded Confirmed Last Taken Aspirin [Aspirin BABY CHEW TAB] 81 mg PO QDAY 02/08/15 04/20/17 02/08/15 Calcitriol [Rocaltrol] 0.25 mcg PO QDAY 02/08/15 04/20/17 02/08/15 Memantine HCl [Namenda Xr] 28 mg PO QDAY 02/08/15 04/20/17 02/08/15 Rivastigmine [Exelon Patch 9.5 mg TD QDAY 02/08/15 04/20/17 02/08/15 9.5mg/24hr] Metoprolol [Lopressor TAB] 25 mg PO BID 04/20/17 04/20/17 04/20/17 Sertraline [Zoloft] 50 mg PO QDAY 04/20/17 04/20/17 04/20/17 50mg Sodium Bicarbonate 650 mg PO BID 04/20/17 04/20/17 04/20/17 650 hydrALAZINE [Apresoline TAB] 25 mg PO BID 04/20/17 04/21/17 04/20/17 25 Previous Rx's Medication Instructions Recorded Last Taken Type QUEtiapine [SEROquel] 50 mg PO QHS #30 tablet 02/11/15 Unknown Rx Cefuroxime [Ceftin] 250 mg PO Q12H #10 tablet 04/24/17 Unknown Rx Ferrous Sulfate [Feosol 325 MG tab] 325 mg PO QDAY #30 tablet 04/24/17 Unknown Rx Nitrofurantoin Monohyd/M-Cryst 100 mg PO BID #20 capsule 05/25/17 Unknown Rx [Macrobid 100 mg Capsule] Allergies Allergy/AdvReac Type Severity Reaction Status Date / Time No Known Allergies Allergy Verified 01/10/15 23:52 ED Review of Systems ROS: Stated complaint: BACK PAIN,NO URINATION W/IN 3 DAYS Other details as noted in HPI Comment: Unobtainable due to pts medical conditions ED Past Medical Hx - Past Medical History Hx Hypertension: Yes Hx Diabetes: Yes Hx Renal Disease: Yes (renal insufficiency) Hx Dementia: Yes (Alzheimer's) Hx HIV: No Additional medical history: high cholesterol. UTI - Surgical History Hx Cholecystectomy: Yes Hx Appendectomy: Yes - Social History Smoking Status: Former Smoker Substance Use Type: None - Medications Home Medications: Home Medications Medication Instructions Recorded Confirmed Last Taken Type Aspirin [Aspirin BABY CHEW TAB] 81 mg PO QDAY 02/08/15 04/20/17 02/08/15 History Calcitriol [Rocaltrol] 0.25 mcg PO QDAY 02/08/15 04/20/17 02/08/15 History Memantine HCl [Namenda Xr] 28 mg PO QDAY 02/08/15 04/20/17 02/08/15 History Rivastigmine [Exelon Patch 9.5 mg TD QDAY 02/08/15 04/20/17 02/08/15 History 9.5mg/24hr] QUEtiapine [SEROquel] 50 mg PO QHS #30 tablet 02/11/15 04/20/17 Unknown Rx Metoprolol [Lopressor TAB] 25 mg PO BID 04/20/17 04/20/17 04/20/17 History Sertraline [Zoloft] 50 mg PO QDAY 04/20/17 04/20/17 04/20/17 History 50mg Sodium Bicarbonate 650 mg PO BID 04/20/17 04/20/17 04/20/17 History 650 hydrALAZINE [Apresoline TAB] 25 mg PO BID 04/20/17 04/21/17 04/20/17 History 25 Cefuroxime [Ceftin] 250 mg PO Q12H #10 tablet 04/24/17 Unknown Rx Ferrous Sulfate [Feosol 325 MG tab] 325 mg PO QDAY #30 tablet 04/24/17 Unknown Rx Nitrofurantoin Monohyd/M-Cryst 100 mg PO BID #20 capsule 05/25/17 Unknown Rx [Macrobid 100 mg Capsule] ED Physical Exam - General Limitations: Altered Mental Status, Physical Limitation General appearance: alert, in no apparent distress - Head Head exam: Present: atraumatic, normocephalic - Eye Eye exam: Present: normal appearance. Absent: scleral icterus - ENT ENT exam: Present: mucous membranes moist - Neck Neck exam: Present: normal inspection - Respiratory Respiratory exam: Present: normal lung sounds bilaterally. Absent: respiratory distress - Cardiovascular Cardiovascular Exam: Present: regular rate, normal rhythm. Absent: systolic murmur, diastolic murmur, rubs, gallop - GI/Abdominal GI/Abdominal exam: Present: soft, normal bowel sounds. Absent: distended, tenderness, guarding, rebound, rigid - Extremities Exam Extremities exam: Present: normal inspection, normal capillary refill. Absent: calf tenderness - Back Exam Back exam: Present: normal inspection. Absent: CVA tenderness (R), CVA tenderness (L), muscle spasm, paraspinal tenderness, vertebral tenderness - Neurological Exam Neurological exam: Present: alert, oriented X3, CN II-XII intact (as testable). Absent: motor sensory deficit (no apparent acute motor or sensory deficit) - Psychiatric Psychiatric exam: Present: normal mood, flat affect - Skin Skin exam: Present: warm, dry, intact, normal color. Absent: rash ED Course Vital Signs 05/25/17 05/25/17 05/25/17 14:05 15:29 15:31 Temperature Pulse Rate 60 60 Respiratory 12 16 15 Rate Blood Pressure 149/96 140/56 140/56 O2 Sat by Pulse 100 Oximetry 05/25/17 05/25/1717 15:32 15:45 16:01 Temperature 98.6 F Pulse Rate 60 60 Respiratory 12 13 Rate Blood Pressure 137/56 137/56 127/50 O2 Sat by Pulse Oximetry 05/25/17 05/25/17 05/25/17 16:15 16:30 16:45 Temperature Pulse Rate 60 59 L 60 Respiratory 14 15 15 Rate Blood Pressure 149/96 119/54 119/54 O2 Sat by Pulse Oximetry 05/25/17 05/25/17 05/25/17 17:00 17:15 17:31 Temperature Pulse Rate 60 60 60 Respiratory 15 13 15 Rate Blood Pressure 130/55 120/72 114/45 O2 Sat by Pulse Oximetry 05/25/17 05/25/17 05/25/17 17:46 18:00 18:15 Temperature Pulse Rate 59 L 67 66 Respiratory 11 L 14 10 L Rate Blood Pressure 114/45 129/57 141/60 O2 Sat by Pulse Oximetry 05/25/17 05/25/17 18:30 18:41 Temperature Pulse Rate 61 Respiratory 12 12 Rate Blood Pressure 153/63 O2 Sat by Pulse Oximetry - Reevaluation(s) Reevaluation #1: Straight cath revealed a residual volume of 100 mL. 05/25/17 18:10 ED Medical Decision Making - Lab Data Result diagrams: 05/25/17 16:14 05/25/17 16:14 Laboratory Results - last 24 hr 05/25/17 05/25/17 16:14 16:14 WBC 11.1 H RBC 3.59 L Hgb 11.4 Hct 35.7 MCV 97 MCH 31 MCHC 32 RDW 14.2 Plt Count 190 Sodium 142 Potassium 4.1 Chloride 103.4 Carbon Dioxide 28 Anion Gap 15 BUN 32 H Creatinine 2.1 H Estimated GFR 22 BUN/Creatinine Ratio 15 Glucose 140 H Calcium 9.4 Laboratory Results - last 24 hr 05/25/17 05/25/17 16:14 16:14 WBC 11.1 H RBC 3.59 L Hgb 11.4 Hct 35.7 MCV 97 MCH 31 MCHC 32 RDW 14.2 Plt Count 190 Sodium 142 Potassium 4.1 Chloride 103.4 Carbon Dioxide 28 Anion Gap 15 BUN 32 H Creatinine 2.1 H Estimated GFR 22 BUN/Creatinine Ratio 15 Glucose 140 H Calcium 9.4 Laboratory Results - last 24 hr 05/25/17 05/25/17 16:14 16:14 WBC 11.1 H RBC 3.59 L Hgb 11.4 Hct 35.7 MCV 97 MCH 31 MCHC 32 RDW 14.2 Plt Count 190 Sodium 142 Potassium 4.1 Chloride 103.4 Carbon Dioxide 28 Anion Gap 15 BUN 32 H Creatinine 2.1 H Estimated GFR 22 BUN/Creatinine Ratio 15 Glucose 140 H Calcium 9.4 Laboratory Results - last 24 hr 05/25/17 05/25/17 05/25/17 16:14 16:14 18:00 WBC 11.1 H RBC 3.59 L Hgb 11.4 Hct 35.7 MCV 97 MCH 31 MCHC 32 RDW 14.2 Plt Count 190 Sodium 142 Potassium 4.1 Chloride 103.4 Carbon Dioxide 28 Anion Gap 15 BUN 32 H Creatinine 2.1 H Estimated GFR 22 BUN/Creatinine Ratio 15 Glucose 140 H Calcium 9.4 Urine Color Yellow Urine Turbidity Clear Urine pH 5.0 Ur Specific [place] 1.017 Urine Protein 100 mg/dl Urine Glucose (UA) Neg Urine Ketones Neg Urine Blood Neg Urine Nitrite Neg Urine Bilirubin Neg Urine Urobilinogen < 2.0 Ur Leukocyte Esterase Sm Urine WBC (Auto) 23.0 H Urine RBC (Auto) 1.0 Urine Bacteria (Auto) 4+ Urine Mucus 1+ - Radiology Data Radiology results: report reviewed interpreted by me: Plain CT shows extensive spondylosis, hypoventilatory changes in the right lung (the patient has had atelectasis read there in the past and I don't think this is secondary to pneumonia and she has no pulmonary symptoms) she has an adrenal nodule but no change Critical care attestation.: If time is entered above; I have spent that time in minutes in the direct care of this critically ill patient, excluding procedure time. ED Disposition Clinical Impression: UTI (urinary tract infection) Qualifiers: Urinary tract infection type: site unspecified Hematuria presence: without hematuria Qualified Code(s): N39.0 - Urinary tract infection, site not specified Back pain Qualifiers: Back pain location: low back pain Chronicity: chronic Back pain laterality: bilateral Sciatica presence: without sciatica Qualified Code(s): M54.5 - Low back pain; G89.29 - Other chronic pain; G89.29 - Other chronic pain Chronic kidney disease Qualifiers: Chronic kidney disease stage: stage 3 (moderate) Qualified Code(s): N18.3 - Chronic kidney disease, stage 3 (moderate) Disposition: TO HOME OR SELFCARE Is pt being admited?: No Does the pt Need Aspirin: No Condition: Stable Instructions: Urinary Tract Infection in Women (ED) Additional Instructions: Follow-up on the urine culture which states 2-3 days. Return if there is any substantial back pain or inability to urinate. See family doctor on Saturday. Return vomiting unable to take fluids fever or chills. Prescriptions: Nitrofurantoin Monohyd/M-Cryst [Macrobid 100 mg Capsule] 100 mg PO BID #20 capsule Referrals: PRIMARY CARE, [Primary Care Provider] - 2-3 Days Time of Disposition: 19:24
[2017-05-25 19:13] LABS: Bacteria,Urine 4+ /HPF (Negative); Bilirubin,Urine NEG (Negative); Blood,Urine NEG (Negative); Ketones,Urine NEG (Negative); Leukocyte Esterase,Urine SM (Negative); Mucus,Urine 1+ /HPF; Nitrite,Urine NEG (Negative); Urobilinogen,Urine < 2.0 mg/dL (<2.0)
[2017-05-25] MEDS: ROCEPHIN IM ONE (19:55)
[2017-05-25] MEDS: XYLOCAINE 1% MPF 5 mL INFILTRATI ONE (19:55)
[2017-05-25 21:26] VITALS: BP 155/137
== END 2017-05-25 21:28 | disposition home or self-care (01) ==
LOC: ED 15:16
DX: N39.0 Urinary tract infection, site not specified (principal); M54.5 Low back pain; G89.29 Other chronic pain; E11.22 Type 2 diabetes mellitus with diabetic chronic kidney disease; I12.9 Hypertensive chronic kidney disease with stage 1 through stage 4 chronic kidney disease, or unspecified chronic kidney disease; N18.3 Chronic kidney disease, stage 3 (moderate); E78.5 Hyperlipidemia, unspecified
CPT/HCPCS: 36415; 74176; 80048; 81001; 85027; 87076; 87086; 87186; 96372; 99284; J0696

== ENCOUNTER 2017-07-31 13:54 | Inpatient (IN) | payer MEDICARE ==
[2017-07-31 17:12] LABS: Bacteria,Urine 1+ /HPF (Negative); Bilirubin,Urine NEG (Negative); Blood,Urine SM (Negative); Color,Urine Yellow (Yellow); Nitrite,Urine POS (Negative); Protein,Urine <15 mg/dL mg/dL (Negative); Urobilinogen,Urine < 2.0 mg/dL (<2.0)
[2017-07-31 17:53] LABS: Calcium 9.5 mg/dL (8.4-10.2)
[2017-07-31 18:11] LABS: Hematocrit 32.8 % (30.3-42.9); Hemoglobin 10.9 gm/dl (10.1-14.3); Mean Corpuscular HGB Conc 33 % (30-34); Mean Corpuscular Hemoglobin 32 pg (28-32); Mean Corpuscular Volume 97 fl (79-97); Platelet Count 181 K/mm3 (140-440); Red Blood Count 3.39 M/mm3 (3.65-5.03); Red Cell Distribution Width 14.6 % (13.2-15.2)
--- NOTE | 2017-07-31 19:20 | Cat Scan Report ---
FINAL REPORT EXAM: CT HEAD/BRAIN WO CON HISTORY: Altered Mental Status TECHNIQUE: Standard unenhanced CT of the head at 5.0 millimeter axial increments. Exam is technically limited by patient motion. PRIORS: CT head 02/08/2015 FINDINGS: The ventricular system is normal in size and configuration. There is moderate cerebral and mild cerebellar atrophy. Low-density in the periventricular white matter is noted consistent with small-vessel ischemic changes. Small lacunar infarct in the left basal ganglia is again noted. There is no evidence for mass lesion, mass effect, midline shift, acute intracranial hemorrhage, or acute ischemia/ infarction. No evidence for acute skull fracture is seen. No abnormality in the overlying scalp soft tissues is seen. Visualized paranasal sinuses demonstrate calcified soft tissue density in the sphenoid sinuses, probably due to chronic inspissated mucus is. IMPRESSION: Atrophy and small vessel ischemic changes. No acute intracranial process noted. No change.
[2017-07-31 19:23] LABS: Alanine Aminotransferase 10 units/L (7-56); Albumin 3.5 g/dL (3.9-5)
[2017-07-31 19:25] LABS: Platelet Estimate Consistent w Auto; RBC Morphology Normal; Total Cells Counted 100
[2017-07-31 19:27] LABS: Bilirubin,Direct < 0.2 mg/dL (0-0.2)
--- NOTE | 2017-07-31 19:29 | Emergency Department Report ---
HPI - General Chief Complaint: Urogenital-Female Time Seen by Provider: 07/31/17 15:47 - HPI HPI: [id number] female presents to the emergency department by EMS from home, with her granddaughter/dedicated driver at bedside, with complaint of some altered mental status and possible UTI. The patient has a history of hypertension, diabetes, Alzheimer's dementia, chronic renal deficiency and hyperlipidemia. She also has a susceptibility to getting UTIs. The granddaughter says that the patient has not had much sleep over the past 2 days , that she is very altered from her baseline, and that she suspects a urinary tract infection. A home health care nurse came by earlier and found the patient to have some urine that was malodorous and bright red. Sometimes when she gets urinary tract infection she will get some altered mental status. The granddaughter says that she is "talking out of her head." She was not given anything and did not receive anything for her symptoms prior to presentation. No recent travel or sick contacts at home. The granddaughter says that she has attempted to contact the PCP, Dr. Mo Mace, but has not been successful. ED Past Medical Hx - Past Medical History Previous Medical History?: Yes Hx Hypertension: Yes Hx Diabetes: Yes Hx Renal Disease: Yes Hx Psychiatric Treatment: Yes (Seroquel) Hx Dementia: Yes Hx HIV: No Additional medical history: high cholesterol. UTI - Surgical History Past Surgical History?: Yes Hx Cholecystectomy: Yes Hx Appendectomy: Yes - Social History Smoking Status: Never Smoker Substance Use Type: None - Medications Home Medications: Home Medications Medication Instructions Recorded Confirmed Last Taken Type Aspirin [Aspirin BABY CHEW TAB] 162 mg PO QPM 02/08/15 07/31/17 05/29/17 History Calcitriol [Rocaltrol] 0.25 mcg PO 5XW 02/08/15 07/31/17 07/31/17 History Memantine HCl [Namenda Xr] 28 mg PO DAILY 02/08/15 07/31/17 07/31/17 History Rivastigmine [Exelon Patch 9.5 mg TD HS 02/08/15 07/31/17 05/29/17 History 9.5mg/24hr] Metoprolol [Lopressor TAB] 25 mg PO BID 04/20/17 07/31/17 07/31/17 History Sertraline [Zoloft] 50 mg PO DAILY 04/20/17 07/31/17 07/31/17 History Sodium Bicarbonate 2 tab PO BID 04/20/17 07/31/17 07/31/17 History hydrALAZINE [Apresoline TAB] 25 mg PO BID 04/20/17 07/31/17 07/31/17 History Cholecalciferol (Vitamin D3) 5,000 unit PO DAILY 05/30/17 07/31/17 07/31/17 History [Vitamin D3] Cranberry Concentrate Softgel 1 cap PO DAILY 05/30/17 07/31/17 07/31/17 History Cyanocobalamin (Vitamin B-12) 2,500 mcg PO DAILY 05/30/17 07/31/17 07/31/17 History [Vitamin B12] Ferrous Sulfate [Feosol 325 MG tab] 325 mg PO HS 05/30/17 07/31/17 05/29/17 History Insulin Aspart [NovoLOG Flexpen] 0 units SQ ACHS PRN 05/30/17 07/31/17 05/30/17 09:00 History Insulin Detemir [Levemir Flextouch] 25 - 30 unit SQ QAM 05/30/17 07/31/17 History NIFEdipine XL [Procardia Xl] 90 mg PO DAILY 05/30/17 07/31/17 07/31/17 History Quetiapine Fumarate [SEROquel] 100 mg PO HS 05/30/17 07/31/17 07/31/17 History Ranitidine HCl [Zantac 150 MG TAB] 150 mg PO DAILY 05/30/17 07/31/17 07/31/17 History ED Review of Systems ROS: Stated complaint: POSSIBLE UTI Other details as noted in HPI Comment: Unobtainable due to pts medical conditions Neurological: confusion Physical Exam - Physical Exam Vital Signs: Vital Signs 07/31/17 07/31/17 15:49 19:20 Temperature 98 F Pulse Rate 62 88 Respiratory 14 16 Rate Blood Pressure 195/62 Blood Pressure 162/86 [Right] O2 Sat by Pulse 99 98 Oximetry Physical Exam: GENERAL: The patient is well-developed well-nourished. HENT: Normocephalic. Atraumatic. Patient has moist mucous membranes. EYES: Extraocular motions are intact. Pupils equal reactive to light bilaterally. NECK: Supple. Trachea is midline. CHEST/LUNGS: Clear to auscultation. There is no respiratory distress noted. HEART/CARDIOVASCULAR: Regular. There is no tachycardia. There is no murmur. ABDOMEN: Abdomen is soft, nontender. Patient has normal bowel sounds. There is no abdominal distention. SKIN: Skin is warm and dry. NEURO: Patient is awake but appears confused. She is saying words that are understandable but do not make sense as a sentence. She follows some commands. Withdraws to painful stimuli. MUSCULOSKELETAL: There is no tenderness or deformity. There is no evidence of acute injury. ED Course Vital Signs 07/31/17 07/31/17 15:49 19:20 Temperature 98 F Pulse Rate 62 88 Respiratory 14 16 Rate Blood Pressure 195/62 Blood Pressure 162/86 [Right] O2 Sat by Pulse 99 98 Oximetry ED Medical Decision Making - Lab Data Result diagrams: 08/01/17 03:05 08/01/17 03:05 - EKG Data -: EKG Interpreted by Sc EKG shows normal: sinus rhythm (with artifact), axis (left axis deviation), intervals, QRS complexes (right bundle Bridge block, left anterior fascicular block, LVH), ST-T waves Rate: bradycardia (58 bpm) - EKG Data When compared to previous EKG there are: no significant change Interpretation: unchanged when compared t (05/30/17) - Radiology Data Radiology results: report reviewed EXAM: CT HEAD/BRAIN WO CON HISTORY: Altered Mental Status TECHNIQUE: Standard unenhanced CT of the head at 5.0 millimeter axial increments. Exam is technically limited by patient motion. PRIORS: CT head 02/08/2015 FINDINGS: The ventricular system is normal in size and configuration. There is moderate cerebral and mild cerebellar atrophy. Low-density in the periventricular white matter is noted consistent with small-vessel ischemic changes. Small lacunar infarct in the left basal ganglia is again noted. There is no evidence for mass lesion, mass effect, midline shift, acute intracranial hemorrhage, or acute ischemia/ infarction. No evidence for acute skull fracture is seen. No abnormality in the overlying scalp soft tissues is seen. Visualized paranasal sinuses demonstrate calcified soft tissue density in the sphenoid sinuses, probably due to chronic inspissated mucus is. IMPRESSION: Atrophy and small vessel ischemic changes. No acute intracranial process noted. No change. Transcribed By: [facility] Dictated By: ALTON BURRELL MD Electronically Authenticated By: ALTON BURRELL MD Signed Date/Time: 07/31/17 1307 - Medical Decision Making This patient presents with some altered mental status despite the fact that she has dementia. CT did not really bleed, shift, mass or any acute process. Oftentimes it is secondary to a urinary tract infection but this time the patient does not have a UTI. Labs show some acute on chronic renal insufficiency. Otherwise there is no etiology of the patient's symptoms found. This may be an exacerbation of her dementia but she does not appear to be at her baseline and the granddaughter is concerned and does not feel she is able to care for her at this time. She'll be admitted to the hospital for further evaluation and treatment. - Differential Diagnosis dementia, CVA, UTI, sepsis Critical Care Time: No Critical care attestation.: If time is entered above; I have spent that time in minutes in the direct care of this critically ill patient, excluding procedure time. ED Disposition Clinical Impression: HTN (hypertension), benign, Physical deconditioning Chronic kidney disease Qualifiers: Chronic kidney disease stage: unspecified stage Qualified Code(s): N18.9 - Chronic kidney disease, unspecified Dementia Qualifiers: Dementia type: unspecified type Dementia behavioral disturbance: without behavioral disturbance Qualified Code(s): F03.90 - Unspecified dementia without behavioral disturbance Altered mental status Qualifiers: Altered mental status type: unspecified Qualified Code(s): R41.82 - Altered mental status, unspecified Disposition: [id number] OP ADMIT IP TO THIS HOSP Is pt being admited?: Yes Condition: Stable
[2017-07-31] MEDS ORDERED: DULCOLAX PR PRN (21:59)
[2017-07-31] MEDS ORDERED: ZOFRAN IV PRN (21:59)
[2017-07-31] MEDS ORDERED: TYLENOL PO PRN (21:59)
[2017-07-31] MEDS ORDERED: MILK OF MAGNESIA PO PRN (21:59)
--- NOTE | 2017-07-31 22:01 | History and Physical Report ---
History of Present Illness Date of examination: 07/31/17 History of present illness: 87-year-old man with a history of hypertension, diabetes, chronic kidney disease , hyperlipidemia, dementia was brought to the emergency room because she has been agitated over the last 2 days. Caregiver, who is also a family member at bedside state that she has not slept in the last 2 days, she has been yelling and screaming, pulling everything etc. she is unable to care for the patient at home. She state the patient had a foul-smelling urine at home Review of systems unobtainable PAST MEDICAL HISTORY: hypertension, diabetes, chronic kidney disease, hyperlipidemia, dementia PAST SURGICAL HISTORY: Appendectomy, cholecystectomy, hysterectomy FAMILY HISTORY:hypertension, diabetes SOCIAL HISTORY: Denies alcohol, tobacco, drugs Medications and Allergies Allergies Allergy/AdvReac Type Severity Reaction Status Date / Time No Known Allergies Allergy Verified 01/10/15 23:52 Home Medications Medication Instructions Recorded Confirmed Last Taken Type Aspirin [Aspirin BABY CHEW TAB] 162 mg PO QPM 02/08/15 07/31/17 05/29/17 History Calcitriol [Rocaltrol] 0.25 mcg PO 5XW 02/08/15 07/31/17 07/31/17 History Memantine HCl [Namenda Xr] 28 mg PO DAILY 02/08/15 07/31/17 07/31/17 History Rivastigmine [Exelon Patch 9.5 mg TD HS 02/08/15 07/31/17 05/29/17 History 9.5mg/24hr] Metoprolol [Lopressor TAB] 25 mg PO BID 04/20/17 07/31/17 07/31/17 History Sertraline [Zoloft] 50 mg PO DAILY 04/20/17 07/31/17 07/31/17 History Sodium Bicarbonate 2 tab PO BID 04/20/17 07/31/17 07/31/17 History hydrALAZINE [Apresoline TAB] 25 mg PO BID 04/20/17 07/31/17 07/31/17 History Cholecalciferol (Vitamin D3) 5,000 unit PO DAILY 05/30/17 07/31/17 07/31/17 History [Vitamin D3] Cranberry Concentrate Softgel 1 cap PO DAILY 05/30/17 07/31/17 07/31/17 History Cyanocobalamin (Vitamin B-12) 2,500 mcg PO DAILY 05/30/17 07/31/17 07/31/17 History [Vitamin B12] Ferrous Sulfate [Feosol 325 MG tab] 325 mg PO HS 05/30/17 07/31/17 05/29/17 History Insulin Aspart [NovoLOG Flexpen] 0 units SQ ACHS PRN 05/30/17 07/31/17 05/30/17 09:00 History Insulin Detemir [Levemir Flextouch] 25 - 30 unit SQ QAM 05/30/17 07/31/17 History NIFEdipine XL [Procardia Xl] 90 mg PO DAILY 05/30/17 07/31/17 07/31/17 History Quetiapine Fumarate [SEROquel] 100 mg PO HS 05/30/17 07/31/17 07/31/17 History Ranitidine HCl [Zantac 150 MG TAB] 150 mg PO DAILY 05/30/17 07/31/17 07/31/17 History Exam - Physical Exam Narrative exam: Gen. appearance: Patient lying in bed in no acute distress HEENT: Normocephalic/atraumatic, pupils equal round reactive to light, extra occular movement intact, no scleral icterus, no JVD or thyromegaly or nodule, neck is supple, mucous membrane moist, no erythema or exudate Heart: S1-S2, regular rate and rhythm Lungs: Clear to auscultation bilateral breathing comfortable Abdomen: Positive bowel sounds, nontender, nondistended, no organomegaly Extremities: No edema, cyanosis, clubbing Neuro:: Oriented 3 , cranial nerves II-12 intact, speech, motor intact Skin: No rash, nodules, warm dry - Constitutional Vitals: Temp Pulse Resp BP Pulse Ox 98.1 F 78 20 168/87 96 07/31/17 20:04 07/31/17 20:04 07/31/17 20:04 07/31/17 20:04 07/31/17 20:04 Results - Labs CBC & Chem 7: 07/31/17 17:26 07/31/17 17:26 Labs: Abnormal lab results 07/31/17 07/31/17 07/31/17 Range/Units 07:29 17:26 17:26 RBC 3.39 L (3.65-5.03) M/mm3 Monocytes % (Manual) 8.0 H (0.0-7.3) % Basophils % (Manual) 4.0 H (0.0-1.8) % Lymphocytes # (Manual) 1.1 L (1.2-5.4) K/mm3 Basophils # (Manual) 0.2 H (0.0-0.1) K/mm3 BUN 26 H (7-17) mg/dL Creatinine 1.8 H (0.7-1.2) mg/dL Glucose 123 H (65-100) mg/dL Ammonia (25-60) umol/L Total Protein 5.7 L (6.3-8.2) g/dL Albumin 3.5 L (3.9-5) g/dL 07/31/17 Range/Units 19:09 RBC (3.65-5.03) M/mm3 Monocytes % (Manual) (0.0-7.3) % Basophils % (Manual) (0.0-1.8) % Lymphocytes # (Manual) (1.2-5.4) K/mm3 Basophils # (Manual) (0.0-0.1) K/mm3 BUN (7-17) mg/dL Creatinine (0.7-1.2) mg/dL Glucose (65-100) mg/dL Ammonia 24.0 L (25-60) umol/L Total Protein (6.3-8.2) g/dL Albumin (3.9-5) g/dL - Imaging and Cardiology CT Scan - head: report reviewed Assessment and Plan Assessment Failure to thrive, worsening dementia hypertension diabetes chronic kidney disease hyperlipidemia Plan Admit to medicine Consult case management for placement Check fingersticks and initiate insulin sliding scale Continue appropriate outpatient medication DVT prophylaxis
[2017-07-31] MEDS ORDERED: D50W (25GM) Syringe IV PRN (23:18)
--- NOTE | 2017-08-01 01:14 | XRay Report ---
FINAL REPORT PROCEDURE: XR CHEST 1V AP TECHNIQUE: Chest radiograph anteroposterior view. CPT 74992 HISTORY: ams COMPARISON: No prior studies are available for comparison. FINDINGS: Heart: Normal. Mediastinum/Vessels: There is calcified plaque in the thoracic aorta.. Lungs/Pleural space: Lungs are expanded. There are no infiltrates, effusions or pneumothoraces.. Bony thorax: No acute osseous abnormality. Life support devices: None. IMPRESSION: No acute cardiopulmonary abnormality.
[2017-08-01 03:57] LABS: Basophils % (Auto) 0.6 % (0.0-1.8); Eosinophils # (Auto) 0.2 K/mm3 (0.0-0.4); Eosinophils % (Auto) 3.3 % (0.0-4.3); Hematocrit 34.8 % (30.3-42.9); Hemoglobin 11.7 gm/dl (10.1-14.3); Lymphocytes % (Auto) 19.1 % (13.4-35.0); Mean Corpuscular HGB Conc 34 % (30-34); Mean Corpuscular Hemoglobin 33 pg (28-32); Mean Corpuscular Volume 97 fl (79-97); Monocytes # (Auto) 0.5 K/mm3 (0.0-0.8); Monocytes % (Auto) 9.5 % (0.0-7.3); Platelet Count 174 K/mm3 (140-440); Red Blood Count 3.58 M/mm3 (3.65-5.03); Red Cell Distribution Width 14.8 % (13.2-15.2)
[2017-08-01 04:18] LABS: Calcium 9.4 mg/dL (8.4-10.2)
[2017-08-01] MEDS: VITAMIN D3 PO SCH (09:33)
[2017-08-01] MEDS: VITAMIN B-12 PO SCH (09:33)
[2017-08-01] MEDS: SODIUM BICARBONATE PO SCH ×2 (09:34→22:30)
[2017-08-01] MEDS: APRESOLINE PO SCH ×2 (09:35→22:30)
[2017-08-01] MEDS: PROCARDIA XL PO SCH (09:35)
[2017-08-01] MEDS: PEPCID PO SCH (09:35)
[2017-08-01] MEDS: LOVENOX SUB-Q SCH (09:36)
[2017-08-01] MEDS: LOPRESSOR PO SCH ×2 (09:36→22:30)
[2017-08-01] MEDS: NOVOLOG SUB-Q SCH ×3 (09:42→18:04)
[2017-08-01] MEDS ORDERED: NON-FORMULARY (Memantine Hcl [Namenda Xr] 28 MG) PO SCH (10:00)
[2017-08-01] MEDS ORDERED: CRANBERRY PO SCH (10:00)
[2017-08-01] MEDS: ROCALTROL PO SCH (12:12)
--- NOTE | 2017-08-01 15:04 | Progress Note ---
<AGUSTIN HENSON - Last Filed: 08/01/17 15:06> Assessment and Plan Assessment and plan: 87-year-old man with a history of hypertension, diabetes, chronic kidney disease , hyperlipidemia, dementia was brought to the emergency room because she has been agitated over the last 2 days. Caregiver, who is also a family member at bedside state that she has not slept in the last 2 days, she has been yelling and screaming, pulling everything etc. she is unable to care for the patient at home. She state the patient had a foul-smelling urine at home Review of systems unobtainable Failure to thrive, worsening dementia Continue home medications Hypertension Controlled on current regimen, continue Diabetes Continue Sliding scale insulin ADA diet, Accu-Cheks before meals and at bedtime chronic kidney disease Stable, we'll continue to monitor hyperlipidemia Lipid panel DVT prophylaxis Lovenox SCDs History Interval history: Patient was seen and examined. She appears confused today, answers questions inappropriately. She denies chest pain, shortness of breath, nausea and vomiting. Labs and nursing notes reviewed. Hospitalist Physical - Constitutional Vitals: Temp Pulse Resp BP Pulse Ox 98.8 F 65 18 140/79 95 08/01/17 13:44 08/01/17 13:44 08/01/17 13:44 08/01/17 13:44 08/01/17 13:44 General appearance: Present: no acute distress, obese - EENT Eyes: Present: PERRL, EOM intact ENT: hearing intact, clear oral mucosa - Neck Neck: Present: supple, normal ROM - Respiratory Respiratory effort: normal Respiratory: bilateral: CTA - Cardiovascular Rhythm: regular Heart Sounds: Present: S1 & S2 - Extremities Extremities: no ischemia, No edema - Abdominal General gastrointestinal: soft, non-tender - Integumentary Integumentary: Present: clear, warm - Psychiatric Psychiatric: other (confused) - Neurologic Neurologic: CNII-XII intact, moves all extremities - Allied Health Allied health notes reviewed: nursing Results - Labs CBC & Chem 7: 08/01/17 03:05 08/01/17 03:05 Labs: Laboratory Last Values WBC 5.4 K/mm3 (4.5-11.0) 08/01/17 03:05 RBC 3.58 M/mm3 (3.65-5.03) L 08/01/17 03:05 Hgb 11.7 gm/dl (10.1-14.3) 08/01/17 03:05 Hct 34.8 % (30.3-42.9) 08/01/17 03:05 MCV 97 fl (79-97) 08/01/17 03:05 MCH 33 pg (28-32) H 08/01/17 03:05 MCHC 34 % (30-34) 08/01/17 03:05 RDW 14.8 % (13.2-15.2) 08/01/17 03:05 Plt Count 174 K/mm3 (140-440) 08/01/17 03:05 Lymph % (Auto) 19.1 % (13.4-35.0) 08/01/17 03:05 [place] % (Auto) 9.5 % (0.0-7.3) H 08/01/17 03:05 Eos % (Auto) 3.3 % (0.0-4.3) 08/01/17 03:05 Baso % (Auto) 0.6 % (0.0-1.8) 08/01/17 03:05 Lymph # 1.0 K/mm3 (1.2-5.4) L 08/01/17 03:05 [place] # 0.5 K/mm3 (0.0-0.8) 08/01/17 03:05 Eos # 0.2 K/mm3 (0.0-0.4) 08/01/17 03:05 Baso # 0.0 K/mm3 (0.0-0.1) 08/01/17 03:05 Add Manual Diff Complete 07/31/17 17:26 Total Counted 100 07/31/17 17:26 Seg Neutrophils % 67.5 % (40.0-70.0) 08/01/17 03:05 Seg Neuts % (Manual) 66.0 % (40.0-70.0) 07/31/17 17:26 Band Neutrophils % 0 % 07/31/17 17:26 Lymphocytes % (Manual) 19.0 % (13.4-35.0) 07/31/17 17:26 Reactive Lymphs % (Man) 0 % 07/31/17 17:26 Monocytes % (Manual) 8.0 % (0.0-7.3) H 07/31/17 17:26 Eosinophils % (Manual) 3.0 % (0.0-4.3) 07/31/17 17:26 Basophils % (Manual) 4.0 % (0.0-1.8) H 07/31/17 17:26 Metamyelocytes % 0 % 07/31/17 17:26 Myelocytes % 0 % 07/31/17 17:26 Promyelocytes % 0 % 07/31/17 17:26 Blast Cells % 0 % 07/31/17 17:26 Nucleated RBC % Not Reportable 07/31/17 17:26 Seg Neutrophils # 3.7 K/mm3 (1.8-7.7) 08/01/17 03:05 Seg Neutrophils # Man 3.7 K/mm3 (1.8-7.7) 07/31/17 17:26 Band Neutrophils # 0.0 K/mm3 07/31/17 17:26 Lymphocytes # (Manual) 1.1 K/mm3 (1.2-5.4) L 07/31/17 17:26 Abs React Lymphs (Man) 0.0 K/mm3 07/31/17 17:26 Monocytes # (Manual) 0.4 K/mm3 (0.0-0.8) 07/31/17 17:26 Eosinophils # (Manual) 0.2 K/mm3 (0.0-0.4) 07/31/17 17:26 Basophils # (Manual) 0.2 K/mm3 (0.0-0.1) H 07/31/17 17:26 Metamyelocytes # 0.0 K/mm3 07/31/17 17:26 Myelocytes # 0.0 K/mm3 07/31/17 17:26 Promyelocytes # 0.0 K/mm3 07/31/17 17:26 Blast Cells # 0.0 K/mm3 07/31/17 17:26 WBC Morphology Not Reportable 07/31/17 17:26 Hypersegmented Neuts Not Reportable 07/31/17 17:26 Hyposegmented Neuts Not Reportable 07/31/17 17:26 Hypogranular Neuts Not Reportable 07/31/17 17:26 Smudge Cells Not Reportable 07/31/17 17:26 Toxic Granulation Not Reportable 07/31/17 17:26 Toxic Vacuolation Not Reportable 07/31/17 17:26 Dohle Bodies Not Reportable 07/31/17 17:26 Pelger-Huet Anomaly Not Reportable 07/31/17 17:26 Avinash Rods Not Reportable 07/31/17 17:26 Platelet Estimate Consistent w auto 07/31/17 17:26 Clumped Platelets Not Reportable 07/31/17 17:26 Plt Clumps, EDTA Not Reportable 07/31/17 17:26 Large Platelets Not Reportable 07/31/17 17:26 Giant Platelets Not Reportable 07/31/17 17:26 Platelet Satelliting Not Reportable 07/31/17 17:26 Plt Morphology Comment Not Reportable 07/31/17 17:26 RBC Morphology Normal 07/31/17 17:26 Dimorphic RBCs Not Reportable 07/31/17 17:26 Polychromasia Not Reportable 07/31/17 17:26 Hypochromasia Not Reportable 07/31/17 17:26 Poikilocytosis Not Reportable 07/31/17 17:26 Anisocytosis Not Reportable 07/31/17 17:26 Microcytosis Not Reportable 07/31/17 17:26 Macrocytosis Not Reportable 07/31/17 17:26 Spherocytes Not Reportable 07/31/17 17:26 Pappenheimer Bodies Not Reportable 07/31/17 17:26 Sickle Cells Not Reportable 07/31/17 17:26 Target Cells Not Reportable 07/31/17 17:26 Tear Drop Cells Not Reportable 07/31/17 17:26 Ovalocytes Not Reportable 07/31/17 17:26 Helmet Cells Not Reportable 07/31/17 17:26 Sanchez-Mayfield Bodies Not Reportable 07/31/17 17:26 Moore Rings Not Reportable 07/31/17 17:26 Carmelo Cells Not Reportable 07/31/17 17:26 Bite Cells Not Reportable 07/31/17 17:26 Crenated Cell Not Reportable 07/31/17 17:26 Elliptocytes Not Reportable 07/31/17 17:26 Acanthocytes (Spur) Not Reportable 07/31/17 17:26 Rouleaux Not Reportable 07/31/17 17:26 Hemoglobin C Crystals Not Reportable 07/31/17 17:26 Schistocytes Not Reportable 07/31/17 17:26 Malaria parasites Not Reportable 07/31/17 17:26 Cristi Bodies Not Reportable 07/31/17 17:26 Hem Pathologist Commnt No 07/31/17 17:26 Sodium 143 mmol/L (137-145) 08/01/17 03:05 Potassium 4.1 mmol/L (3.6-5.0) 08/01/17 03:05 Chloride 102.5 mmol/L (98-107) 08/01/17 03:05 Carbon Dioxide 27 mmol/L (22-30) 08/01/17 03:05 Anion Gap 18 mmol/L 08/01/17 03:05 BUN 26 mg/dL (7-17) H 08/01/17 03:05 Creatinine 1.7 mg/dL (0.7-1.2) H 08/01/17 03:05 Estimated GFR 29 ml/min 08/01/17 03:05 BUN/Creatinine Ratio 15 % 08/01/17 03:05 Glucose 268 mg/dL (65-100) H 08/01/17 03:05 POC Glucose 137 (70-105) H 08/01/17 11:33 Lactic Acid 1.30 mmol/L (0.7-2.0) 07/31/17 19:09 Calcium 9.4 mg/dL (8.4-10.2) 08/01/17 03:05 Total Bilirubin 0.60 mg/dL (0.1-1.2) 07/31/17 07:29 Direct Bilirubin < 0.2 mg/dL (0-0.2) 07/31/17 07:29 Indirect Bilirubin 0.4 mg/dL 07/31/17 07:29 AST 22 units/L (5-40) 07/31/17 07:29 ALT 10 units/L (7-56) 07/31/17 07:29 Alkaline Phosphatase 86 units/L (35-129) 07/31/17 07:29 Ammonia 24.0 umol/L (25-60) L 07/31/17 19:09 Troponin T 0.016 ng/mL (0.00-0.029) 07/31/17 07:29 Total Protein 5.7 g/dL (6.3-8.2) L 07/31/17 07:29 Albumin 3.5 g/dL (3.9-5) L 07/31/17 07:29 Albumin/Globulin Ratio 1.6 % 07/31/17 07:29 TSH 2.060 mlU/mL (0.270-4.200) 07/31/17 07:29 Urine Color Yellow (Yellow) 07/31/17 16:42 Urine Turbidity Slightly-cloudy (Clear) 07/31/17 16:42 Urine pH 7.0 (5.0-7.0) 07/31/17 16:42 Ur Specific [place] 1.012 (1.003-1.030) 07/31/17 16:42 Urine Protein <15 mg/dl mg/dL (Negative) 07/31/17 16:42 Urine Glucose (UA) Neg mg/dL (Negative) 07/31/17 16:42 Urine Ketones Neg mg/dL (Negative) 07/31/17 16:42 Urine Blood Sm (Negative) 07/31/17 16:42 Urine Nitrite Pos (Negative) 07/31/17 16:42 Urine Bilirubin Neg (Negative) 07/31/17 16:42 Urine Urobilinogen < 2.0 mg/dL (<2.0) 07/31/17 16:42 Ur Leukocyte Esterase Tr (Negative) 07/31/17 16:42 Urine WBC (Auto) 4.0 /HPF (0.0-6.0) 07/31/17 16:42 Urine RBC (Auto) 3.0 /HPF (0.0-6.0) 07/31/17 16:42 Urine Bacteria (Auto) 1+ /HPF (Negative) 07/31/17 16:42 <BART KRUGER M - Last Filed: 08/03/17 08:01> Assessment and Plan Assessment and plan: I saw and evaluated the patient. I agree with the findings and the plan of care as documented in the PA's progress note, with the following corrections and additions. patient's family refused to be seen by the neurologist we have here. patient needs SNF placement. Hospitalist Physical - Constitutional Vitals: Temp Pulse Resp BP Pulse Ox 97.7 F 64 18 198/74 98 08/02/17 20:47 08/03/17 00:36 08/02/17 20:47 08/03/17 00:36 08/02/17 20:47 Results - Labs CBC & Chem 7: 08/01/17 03:05 08/01/17 03:05 Labs: Laboratory Last Values WBC 5.4 K/mm3 (4.5-11.0) 08/01/17 03:05 RBC 3.58 M/mm3 (3.65-5.03) L 08/01/17 03:05 Hgb 11.7 gm/dl (10.1-14.3) 08/01/17 03:05 Hct 34.8 % (30.3-42.9) 08/01/17 03:05 MCV 97 fl (79-97) 08/01/17 03:05 MCH 33 pg (28-32) H 08/01/17 03:05 MCHC 34 % (30-34) 08/01/17 03:05 RDW 14.8 % (13.2-15.2) 08/01/17 03:05 Plt Count 174 K/mm3 (140-440) 08/01/17 03:05 Lymph % (Auto) 19.1 % (13.4-35.0) 08/01/17 03:05 [place] % (Auto) 9.5 % (0.0-7.3) H 08/01/17 03:05 Eos % (Auto) 3.3 % (0.0-4.3) 08/01/17 03:05 Baso % (Auto) 0.6 % (0.0-1.8) 08/01/17 03:05 Lymph # 1.0 K/mm3 (1.2-5.4) L 08/01/17 03:05 [place] # 0.5 K/mm3 (0.0-0.8) 08/01/17 03:05 Eos # 0.2 K/mm3 (0.0-0.4) 08/01/17 03:05 Baso # 0.0 K/mm3 (0.0-0.1) 08/01/17 03:05 Add Manual Diff Complete 07/31/17 17:26 Total Counted 100 07/31/17 17:26 Seg Neutrophils % 67.5 % (40.0-70.0) 08/01/17 03:05 Seg Neuts % (Manual) 66.0 % (40.0-70.0) 07/31/17 17:26 Band Neutrophils % 0 % 07/31/17 17:26 Lymphocytes % (Manual) 19.0 % (13.4-35.0) 07/31/17 17:26 Reactive Lymphs % (Man) 0 % 07/31/17 17:26 Monocytes % (Manual) 8.0 % (0.0-7.3) H 07/31/17 17:26 Eosinophils % (Manual) 3.0 % (0.0-4.3) 07/31/17 17:26 Basophils % (Manual) 4.0 % (0.0-1.8) H 07/31/17 17:26 Metamyelocytes % 0 % 07/31/17 17:26 Myelocytes % 0 % 07/31/17 17:26 Promyelocytes % 0 % 07/31/17 17:26 Blast Cells % 0 % 07/31/17 17:26 Nucleated RBC % Not Reportable 07/31/17 17:26 Seg Neutrophils # 3.7 K/mm3 (1.8-7.7) 08/01/17 03:05 Seg Neutrophils # Man 3.7 K/mm3 (1.8-7.7) 07/31/17 17:26 Band Neutrophils # 0.0 K/mm3 07/31/17 17:26 Lymphocytes # (Manual) 1.1 K/mm3 (1.2-5.4) L 07/31/17 17:26 Abs React Lymphs (Man) 0.0 K/mm3 07/31/17 17:26 Monocytes # (Manual) 0.4 K/mm3 (0.0-0.8) 07/31/17 17:26 Eosinophils # (Manual) 0.2 K/mm3 (0.0-0.4) 07/31/17 17:26 Basophils # (Manual) 0.2 K/mm3 (0.0-0.1) H 07/31/17 17:26 Metamyelocytes # 0.0 K/mm3 07/31/17 17:26 Myelocytes # 0.0 K/mm3 07/31/17 17:26 Promyelocytes # 0.0 K/mm3 07/31/17 17:26 Blast Cells # 0.0 K/mm3 07/31/17 17:26 WBC Morphology Not Reportable 07/31/17 17:26 Hypersegmented Neuts Not Reportable 07/31/17 17:26 Hyposegmented Neuts Not Reportable 07/31/17 17:26 Hypogranular Neuts Not Reportable 07/31/17 17:26 Smudge Cells Not Reportable 07/31/17 17:26 Toxic Granulation Not Reportable 07/31/17 17:26 Toxic Vacuolation Not Reportable 07/31/17 17:26 Dohle Bodies Not Reportable 07/31/17 17:26 Pelger-Huet Anomaly Not Reportable 07/31/17 17:26 Avinash Rods Not Reportable 07/31/17 17:26 Platelet Estimate Consistent w auto 07/31/17 17:26 Clumped Platelets Not Reportable 07/31/17 17:26 Plt Clumps, EDTA Not Reportable 07/31/17 17:26 Large Platelets Not Reportable 07/31/17 17:26 Giant Platelets Not Reportable 07/31/17 17:26 Platelet Satelliting Not Reportable 07/31/17 17:26 Plt Morphology Comment Not Reportable 07/31/17 17:26 RBC Morphology Normal 07/31/17 17:26 Dimorphic RBCs Not Reportable 07/31/17 17:26 Polychromasia Not Reportable 07/31/17 17:26 Hypochromasia Not Reportable 07/31/17 17:26 Poikilocytosis Not Reportable 07/31/17 17:26 Anisocytosis Not Reportable 07/31/17 17:26 Microcytosis Not Reportable 07/31/17 17:26 Macrocytosis Not Reportable 07/31/17 17:26 Spherocytes Not Reportable 07/31/17 17:26 Pappenheimer Bodies Not Reportable 07/31/17 17:26 Sickle Cells Not Reportable 07/31/17 17:26 Target Cells Not Reportable 07/31/17 17:26 Tear Drop Cells Not Reportable 07/31/17 17:26 Ovalocytes Not Reportable 07/31/17 17:26 Helmet Cells Not Reportable 07/31/17 17:26 Sanchez-Mayfield Bodies Not Reportable 07/31/17 17:26 Moore Rings Not Reportable 07/31/17 17:26 Carmelo Cells Not Reportable 07/31/17 17:26 Bite Cells Not Reportable 07/31/17 17:26 Crenated Cell Not Reportable 07/31/17 17:26 Elliptocytes Not Reportable 07/31/17 17:26 Acanthocytes (Spur) Not Reportable 07/31/17 17:26 Rouleaux Not Reportable 07/31/17 17:26 Hemoglobin C Crystals Not Reportable 07/31/17 17:26 Schistocytes Not Reportable 07/31/17 17:26 Malaria parasites Not Reportable 07/31/17 17:26 Cristi Bodies Not Reportable 07/31/17 17:26 Hem Pathologist Commnt No 07/31/17 17:26 Sodium 143 mmol/L (137-145) 08/01/17 03:05 Potassium 4.1 mmol/L (3.6-5.0) 08/01/17 03:05 Chloride 102.5 mmol/L (98-107) 08/01/17 03:05 Carbon Dioxide 27 mmol/L (22-30) 08/01/17 03:05 Anion Gap 18 mmol/L 08/01/17 03:05 BUN 26 mg/dL (7-17) H 08/01/17 03:05 Creatinine 1.7 mg/dL (0.7-1.2) H 08/01/17 03:05 Estimated GFR 29 ml/min 08/01/17 03:05 BUN/Creatinine Ratio 15 % 08/01/17 03:05 Glucose 268 mg/dL (65-100) H 08/01/17 03:05 POC Glucose 128 (70-105) H 08/02/17 21:24 Lactic Acid 1.30 mmol/L (0.7-2.0) 07/31/17 19:09 Calcium 9.4 mg/dL (8.4-10.2) 08/01/17 03:05 Total Bilirubin 0.60 mg/dL (0.1-1.2) 07/31/17 07:29 Direct Bilirubin < 0.2 mg/dL (0-0.2) 07/31/17 07:29 Indirect Bilirubin 0.4 mg/dL 07/31/17 07:29 AST 22 units/L (5-40) 07/31/17 07:29 ALT 10 units/L (7-56) 07/31/17 07:29 Alkaline Phosphatase 86 units/L (35-129) 07/31/17 07:29 Ammonia 24.0 umol/L (25-60) L 07/31/17 19:09 Troponin T 0.016 ng/mL (0.00-0.029) 07/31/17 07:29 Total Protein 5.7 g/dL (6.3-8.2) L 07/31/17 07:29 Albumin 3.5 g/dL (3.9-5) L 07/31/17 07: Albumin/Globulin Ratio 1.6 % 07/31/17 07: TSH 2.060 mlU/mL (0.270-4.200) 07/31/17 07:29 Urine Color Yellow (Yellow) 08/02/17 04:00 Urine Turbidity Clear (Clear) 08/02/17 04:00 Urine pH 5.0 (5.0-7.0) 08/02/17 04:00 Ur Specific [place] 1.014 (1.003-1.030) 08/02/17 04:00 Urine Protein <15 mg/dl mg/dL (Negative) 08/02/17 04:00 Urine Glucose (UA) Neg mg/dL (Negative) 08/02/17 04:00 Urine Ketones Neg mg/dL (Negative) 08/02/17 04:00 Urine Blood Mod (Negative) 08/02/17 04:00 Urine Nitrite Pos (Negative) 08/02/17 04:00 Urine Bilirubin Neg (Negative) 08/02/17 04:00 Urine Urobilinogen < 2.0 mg/dL (<2.0) 08/02/17 04:00 Ur Leukocyte Esterase Neg (Negative) 08/02/17 04:00 Urine WBC (Auto) 8.0 /HPF (0.0-6.0) H 08/02/17 04:00 Urine RBC (Auto) 1.0 /HPF (0.0-6.0) 08/02/17 04:00 Urine Bacteria (Auto) 1+ /HPF (Negative) 08/02/17 04:00 Urine Mucus Few /HPF 08/02/17 04:00
[2017-08-01] MEDS: BABY ASPIRIN PO SCH (18:02)
[2017-08-01] MEDS: FEOSOL PO SCH (22:25)
[2017-08-01] MEDS: NAMENDA PO SCH (22:30)
[2017-08-02] MEDS: EXELON TD SCH (03:57)
[2017-08-02 07:16] LABS: Bacteria,Urine 1+ /HPF (Negative); Bilirubin,Urine NEG (Negative); Blood,Urine MOD (Negative); Color,Urine Yellow (Yellow); Mucus,Urine FEW /HPF; Nitrite,Urine POS (Negative); Protein,Urine <15 mg/dL mg/dL (Negative); Urobilinogen,Urine < 2.0 mg/dL (<2.0)
[2017-08-02] MEDS: NOVOLOG SUB-Q SCH ×3 (09:00→17:31)
[2017-08-02] MEDS: LEVAQUIN PO SCH (09:01)
[2017-08-02] MEDS: LOVENOX SUB-Q SCH (09:01)
[2017-08-02] MEDS: PEPCID PO SCH (09:01)
[2017-08-02] MEDS: NAMENDA PO SCH (09:01)
[2017-08-02] MEDS: SODIUM BICARBONATE PO SCH (09:02)
[2017-08-02] MEDS: VITAMIN D3 PO SCH (09:02)
[2017-08-02] MEDS: VITAMIN B-12 PO SCH (09:04)
[2017-08-02] MEDS: LOPRESSOR PO SCH (10:00)
[2017-08-02] MEDS: PROCARDIA XL PO SCH (10:00)
[2017-08-02] MEDS: APRESOLINE PO SCH (10:00)
--- NOTE | 2017-08-02 11:41 | Progress Note ---
<AGUSTIN HENSON - Last Filed: 08/02/17 13:49> Assessment and Plan Assessment and plan: 87-year-old man with a history of hypertension, diabetes, chronic kidney disease , hyperlipidemia, dementia was brought to the emergency room because she has been agitated over the last 2 days. Caregiver, who is also a family member at bedside state that she has not slept in the last 2 days, she has been yelling and screaming, pulling everything etc. she is unable to care for the patient at home. She state the patient had a foul-smelling urine at home Review of systems unobtainable Failure to thrive, worsening dementia Continue home meds Hypertension Controlled on current regimen, continue Diabetes Continue Sliding scale insulin ADA diet, Accu-Cheks before meals and at bedtime chronic kidney disease Stable, we'll continue to monitor hyperlipidemia Lipid panel DVT prophylaxis Lovenox SCDs History Interval history: Patient was seen and examined. She's very drowsy and difficult to arouse. Hospitalist Physical - Constitutional Vitals: Temp Pulse Resp BP Pulse Ox 98.7 F 65 18 116/83 96 08/02/17 07:42 08/02/17 07:42 08/02/17 07:42 08/02/17 07:42 08/02/17 09:37 General appearance: Present: no acute distress, obese - EENT Eyes: Present: PERRL, EOM intact ENT: hearing intact, clear oral mucosa - Neck Neck: Present: supple, normal ROM - Respiratory Respiratory effort: normal Respiratory: bilateral: CTA - Cardiovascular Rhythm: regular Heart Sounds: Present: S1 & S2 - Extremities Extremities: no ischemia, No edema - Abdominal General gastrointestinal: soft, non-tender - Integumentary Integumentary: Present: clear, warm - Psychiatric Psychiatric: other - Neurologic Neurologic: CNII-XII intact - Allied Health Allied health notes reviewed: nursing Results - Labs CBC & Chem 7: 08/01/17 03:05 08/01/17 03:05 Labs: Laboratory Last Values WBC 5.4 K/mm3 (4.5-11.0) 08/01/17 03:05 RBC 3.58 M/mm3 (3.65-5.03) L 08/01/17 03:05 Hgb 11.7 gm/dl (10.1-14.3) 08/01/17 03:05 Hct 34.8 % (30.3-42.9) 08/01/17 03:05 MCV 97 fl (79-97) 08/01/17 03:05 MCH 33 pg (28-32) H 08/01/17 03:05 MCHC 34 % (30-34) 08/01/17 03:05 RDW 14.8 % (13.2-15.2) 08/01/17 03:05 Plt Count 174 K/mm3 (140-440) 08/01/17 03:05 Lymph % (Auto) 19.1 % (13.4-35.0) 08/01/17 03:05 Hind[place] % (Auto) 9.5 % (0.0-7.3) H 08/01/17 03:05 Eos % (Auto) 3.3 % (0.0-4.3) 08/01/17 03:05 Baso % (Auto) 0.6 % (0.0-1.8) 08/01/17 03:05 Lymph # 1.0 K/mm3 (1.2-5.4) L 08/01/17 03:05 Hinds # 0.5 K/mm3 (0.0-0.8) 08/01/17 03:05 Eos # 0.2 K/mm3 (0.0-0.4) 08/01/17 03:05 Baso # 0.0 K/mm3 (0.0-0.1) 08/01/17 03:05 Add Manual Diff Complete 07/31/17 17:26 Total Counted 100 07/31/17 17:26 Seg Neutrophils % 67.5 % (40.0-70.0) 08/01/17 03:05 Seg Neuts % (Manual) 66.0 % (40.0-70.0) 07/31/17 17:26 Band Neutrophils % 0 % 07/31/17 17:26 Lymphocytes % (Manual) 19.0 % (13.4-35.0) 07/31/17 17:26 Reactive Lymphs % (Man) 0 % 07/31/17 17:26 Monocytes % (Manual) 8.0 % (0.0-7.3) H 07/31/17 17:26 Eosinophils % (Manual) 3.0 % (0.0-4.3) 07/31/17 17:26 Basophils % (Manual) 4.0 % (0.0-1.8) H 07/31/17 17:26 Metamyelocytes % 0 % 07/31/17 17:26 Myelocytes % 0 % 07/31/17 17:26 Promyelocytes % 0 % 07/31/17 17:26 Blast Cells % 0 % 07/31/17 17:26 Nucleated RBC % Not Reportable 07/31/17 17:26 Seg Neutrophils # 3.7 K/mm3 (1.8-7.7) 08/01/17 03:05 Seg Neutrophils # Man 3.7 K/mm3 (1.8-7.7) 07/31/17 17:26 Band Neutrophils # 0.0 K/mm3 07/31/17 17:26 Lymphocytes # (Manual) 1.1 K/mm3 (1.2-5.4) L 07/31/17 17:26 Abs React Lymphs (Man) 0.0 K/mm3 07/31/17 17:26 Monocytes # (Manual) 0.4 K/mm3 (0.0-0.8) 07/31/17 17:26 Eosinophils # (Manual) 0.2 K/mm3 (0.0-0.4) 07/31/17 17:26 Basophils # (Manual) 0.2 K/mm3 (0.0-0.1) H 07/31/17 17:26 Metamyelocytes # 0.0 K/mm3 07/31/17 17:26 Myelocytes # 0.0 K/mm3 07/31/17 17:26 Promyelocytes # 0.0 K/mm3 07/31/17 17:26 Blast Cells # 0.0 K/mm3 07/31/17 17:26 WBC Morphology Not Reportable 07/31/17 17:26 Hypersegmented Neuts Not Reportable 07/31/17 17:26 Hyposegmented Neuts Not Reportable 07/31/17 17:26 Hypogranular Neuts Not Reportable 07/31/17 17:26 Smudge Cells Not Reportable 07/31/17 17:26 Toxic Granulation Not Reportable 07/31/17 17:26 Toxic Vacuolation Not Reportable 07/31/17 17:26 Dohle Bodies Not Reportable 07/31/17 17:26 Pelger-Huet Anomaly Not Reportable 07/31/17 17:26 Avinash Rods Not Reportable 07/31/17 17:26 Platelet Estimate Consistent w auto 07/31/17 17:26 Clumped Platelets Not Reportable 07/31/17 17:26 Plt Clumps, EDTA Not Reportable 07/31/17 17:26 Large Platelets Not Reportable 07/31/17 17:26 Giant Platelets Not Reportable 07/31/17 17:26 Platelet Satelliting Not Reportable 07/31/17 17:26 Plt Morphology Comment Not Reportable 07/31/17 17:26 RBC Morphology Normal 07/31/17 17:26 Dimorphic RBCs Not Reportable 07/31/17 17:26 Polychromasia Not Reportable 07/31/17 17:26 Hypochromasia Not Reportable 07/31/17 17:26 Poikilocytosis Not Reportable 07/31/17 17:26 Anisocytosis Not Reportable 07/31/17 17:26 Microcytosis Not Reportable 07/31/17 17:26 Macrocytosis Not Reportable 07/31/17 17:26 Spherocytes Not Reportable 07/31/17 17:26 Pappenheimer Bodies Not Reportable 07/31/17 17:26 Sickle Cells Not Reportable 07/31/17 17:26 Target Cells Not Reportable 07/31/17 17:26 Tear Drop Cells Not Reportable 07/31/17 17:26 Ovalocytes Not Reportable 07/31/17 17:26 Helmet Cells Not Reportable 07/31/17 17:26 [place] Bodies Not Reportable 07/31/17 17:26 [place] Rings Not Reportable 07/31/17 17:26 [place] Cells Not Reportable 07/31/17 17:26 Bite Cells Not Reportable 07/31/17 17:26 Crenated Cell Not Reportable 07/31/17 17:26 Elliptocytes Not Reportable 07/31/17 17:26 Acanthocytes (Spur) Not Reportable 07/31/17 17:26 Rouleaux Not Reportable 07/31/17 17:26 Hemoglobin C Crystals Not Reportable 07/31/17 17:26 Schistocytes Not Reportable 07/31/17 17:26 Malaria parasites Not Reportable 07/31/17 17:26 Cristi Bodies Not Reportable 07/31/17 17:26 Hem Pathologist Commnt No 07/31/17 17:26 Sodium 143 mmol/L (137-145) 08/01/17 03:05 Potassium 4.1 mmol/L (3.6-5.0) 08/01/17 03:05 Chloride 102.5 mmol/L (98-107) 08/01/17 03:05 Carbon Dioxide 27 mmol/L (22-30) 08/01/17 03:05 Anion Gap 18 mmol/L 08/01/17 03:05 BUN 26 mg/dL (7-17) H 08/01/17 03:05 Creatinine 1.7 mg/dL (0.7-1.2) H 08/01/17 03:05 Estimated GFR 29 ml/min 08/01/17 03:05 BUN/Creatinine Ratio 15 % 08/01/17 03:05 Glucose 268 mg/dL (65-100) H 08/01/17 03:05 POC Glucose 186 (70-105) H 08/02/17 07:48 Lactic Acid 1.30 mmol/L (0.7-2.0) 07/31/17 19:09 Calcium 9.4 mg/dL (8.4-10.2) 08/01/17 03:05 Total Bilirubin 0.60 mg/dL (0.1-1.2) 07/31/17 07:29 Direct Bilirubin < 0.2 mg/dL (0-0.2) 07/31/17 07:29 Indirect Bilirubin 0.4 mg/dL 07/31/17 07:29 AST 22 units/L (5-40) 07/31/17 07:29 ALT 10 units/L (7-56) 07/31/17 07:29 Alkaline Phosphatase 86 units/L (35-129) 07/31/17 07:29 Ammonia 24.0 umol/L (25-60) L 07/31/17 19:09 Troponin T 0.016 ng/mL (0.00-0.029) 07/31/17 07:29 Total Protein 5.7 g/dL (6.3-8.2) L 07/31/17 07:29 Albumin 3.5 g/dL (3.9-5) L 07/31/17 07:29 Albumin/Globulin Ratio 1.6 % 07/31/17 07:29 TSH 2.060 mlU/mL (0.270-4.200) 07/31/17 07:29 Urine Color Yellow (Yellow) 08/02/17 04:00 Urine Turbidity Clear (Clear) 08/02/17 04:00 Urine pH 5.0 (5.0-7.0) 08/02/17 04:00 Ur Specific [place] 1.014 (1.003-1.030) 08/02/17 04:00 Urine Protein <15 mg/dl mg/dL (Negative) 08/02/17 04:00 Urine Glucose (UA) Neg mg/dL (Negative) 08/02/17 04:00 Urine Ketones Neg mg/dL (Negative) 08/02/17 04:00 Urine Blood Mod (Negative) 08/02/17 04:00 Urine Nitrite Pos (Negative) 08/02/17 04:00 Urine Bilirubin Neg (Negative) 08/02/17 04:00 Urine Urobilinogen < 2.0 mg/dL (<2.0) 08/02/17 04:00 Ur Leukocyte Esterase Neg (Negative) 08/02/17 04:00 Urine WBC (Auto) 8.0 /HPF (0.0-6.0) H 08/02/17 04:00 Urine RBC (Auto) 1.0 /HPF (0.0-6.0) 08/02/17 04:00 Urine Bacteria (Auto) 1+ /HPF (Negative) 08/02/17 04:00 Urine Mucus Few /HPF 08/02/17 04:00 <BART KRUGER - Last Filed: 08/03/17 08:02> Assessment and Plan Assessment and plan: I saw and evaluated the patient. I agree with the findings and the plan of care as documented in the PA's~note, with the following corrections and additions. patient has UTI and on PO Levaquin. Hospitalist Physical - Constitutional Vitals: Temp Pulse Resp BP Pulse Ox 97.7 F 64 18 198/74 98 08/02/17 20:47 08/03/17 00:36 08/02/17 20:47 08/03/17 00:36 08/02/17 20:47 Results - Labs CBC & Chem 7: 08/01/17 03:05 08/01/17 03:05 Labs: Laboratory Last Values WBC 5.4 K/mm3 (4.5-11.0) 08/01/17 03:05 RBC 3.58 M/mm3 (3.65-5.03) L 08/01/17 03:05 Hgb 11.7 gm/dl (10.1-14.3) 08/01/17 03:05 Hct 34.8 % (30.3-42.9) 08/01/17 03:05 MCV 97 fl (79-97) 08/01/17 03:05 MCH 33 pg (28-32) H 08/01/17 03:05 MCHC 34 % (30-34) 08/01/17 03:05 RDW 14.8 % (13.2-15.2) 08/01/17 03:05 Plt Count 174 K/mm3 (140-440) 08/01/17 03:05 Lymph % (Auto) 19.1 % (13.4-35.0) 08/01/17 03:05 Hinds % (Auto) 9.5 % (0.0-7.3) H 08/01/17 03:05 Eos % (Auto) 3.3 % (0.0-4.3) 08/01/17 03:05 Baso % (Auto) 0.6 % (0.0-1.8) 08/01/17 03:05 Lymph # 1.0 K/mm3 (1.2-5.4) L 08/01/17 03:05 Hinds # 0.5 K/mm3 (0.0-0.8) 08/01/17 03:05 Eos # 0.2 K/mm3 (0.0-0.4) 08/01/17 03:05 Baso # 0.0 K/mm3 (0.0-0.1) 08/01/17 03:05 Add Manual Diff Complete 07/31/17 17:26 Total Counted 100 07/31/17 17:26 Seg Neutrophils % 67.5 % (40.0-70.0) 08/01/17 03:05 Seg Neuts % (Manual) 66.0 % (40.0-70.0) 07/31/17 17:26 Band Neutrophils % 0 % 07/31/17 17:26 Lymphocytes % (Manual) 19.0 % (13.4-35.0) 07/31/17 17:26 Reactive Lymphs % (Man) 0 % 07/31/17 17:26 Monocytes % (Manual) 8.0 % (0.0-7.3) H 07/31/17 17:26 Eosinophils % (Manual) 3.0 % (0.0-4.3) 07/31/17 17:26 Basophils % (Manual) 4.0 % (0.0-1.8) H 07/31/17 17:26 Metamyelocytes % 0 % 07/31/17 17:26 Myelocytes % 0 % 07/31/17 17:26 Promyelocytes % 0 % 07/31/17 17:26 Blast Cells % 0 % 07/31/17 17:26 Nucleated RBC % Not Reportable 07/31/17 17:26 Seg Neutrophils # 3.7 K/mm3 (1.8-7.7) 08/01/17 03:05 Seg Neutrophils # Man 3.7 K/mm3 (1.8-7.7) 07/31/17 17:26 Band Neutrophils # 0.0 K/mm3 07/31/17 17:26 Lymphocytes # (Manual) 1.1 K/mm3 (1.2-5.4) L 07/31/17 17:26 Abs React Lymphs (Man) 0.0 K/mm3 07/31/17 17:26 Monocytes # (Manual) 0.4 K/mm3 (0.0-0.8) 07/31/17 17:26 Eosinophils # (Manual) 0.2 K/mm3 (0.0-0.4) 07/31/17 17:26 Basophils # (Manual) 0.2 K/mm3 (0.0-0.1) H 07/31/17 17:26 Metamyelocytes # 0.0 K/mm3 07/31/17 17:26 Myelocytes # 0.0 K/mm3 07/31/17 17:26 Promyelocytes # 0.0 K/mm3 07/31/17 17:26 Blast Cells # 0.0 K/mm3 07/31/17 17:26 WBC Morphology Not Reportable 07/31/17 17:26 Hypersegmented Neuts Not Reportable 07/31/17 17:26 Hyposegmented Neuts Not Reportable 07/31/17 17:26 Hypogranular Neuts Not Reportable 07/31/17 17:26 Smudge Cells Not Reportable 07/31/17 17:26 Toxic Granulation Not Reportable 07/31/17 17:26 Toxic Vacuolation Not Reportable 07/31/17 17:26 Dohle Bodies Not Reportable 07/31/17 17:26 Pelger-Huet Anomaly Not Reportable 07/31/17 17:26 Avinash Rods Not Reportable 07/31/17 17:26 Platelet Estimate Consistent w auto 07/31/17 17:26 Clumped Platelets Not Reportable 07/31/17 17:26 Plt Clumps, EDTA Not Reportable 07/31/17 17:26 Large Platelets Not Reportable 07/31/17 17:26 Giant Platelets Not Reportable 07/31/17 17:26 Platelet Satelliting Not Reportable 07/31/17 17:26 Plt Morphology Comment Not Reportable 07/31/17 17:26 RBC Morphology Normal 07/31/17 17:26 Dimorphic RBCs Not Reportable 07/31/17 17:26 Polychromasia Not Reportable 07/31/17 17:26 Hypochromasia Not Reportable 07/31/17 17:26 Poikilocytosis Not Reportable 07/31/17 17:26 Anisocytosis Not Reportable 07/31/17 17:26 Microcytosis Not Reportable 07/31/17 17:26 Macrocytosis Not Reportable 07/31/17 17:26 Spherocytes Not Reportable 07/31/17 17:26 Pappenheimer Bodies Not Reportable 07/31/17 17:26 Sickle Cells Not Reportable 07/31/17 17:26 Target Cells Not Reportable 07/31/17 17:26 Tear Drop Cells Not Reportable 07/31/17 17:26 Ovalocytes Not Reportable 07/31/17 17:26 Helmet Cells Not Reportable 07/31/17 17:26 [place] Bodies Not Reportable 07/31/17 17:26 [place] Rings Not Reportable 07/31/17 17:26 [place] Cells Not Reportable 07/31/17 17:26 Bite Cells Not Reportable 07/31/17 17:26 Crenated Cell Not Reportable 07/31/17 17:26 Elliptocytes Not Reportable 07/31/17 17:26 Acanthocytes (Spur) Not Reportable 07/31/17 17:26 Rouleaux Not Reportable 07/31/17 17:26 Hemoglobin C Crystals Not Reportable 07/31/17 17:26 Schistocytes Not Reportable 07/31/17 17:26 Malaria parasites Not Reportable 07/31/17 17:26 Cristi Bodies Not Reportable 07/31/17 17:26 Hem Pathologist Commnt No 07/31/17 17:26 Sodium 143 mmol/L (137-145) 08/01/17 03:05 Potassium 4.1 mmol/L (3.6-5.0) 08/01/17 03:05 Chloride 102.5 mmol/L (98-107) 08/01/17 03:05 Carbon Dioxide 27 mmol/L (22-30) 08/01/17 03:05 Anion Gap 18 mmol/L 08/01/17 03:05 BUN 26 mg/dL (7-17) H 08/01/17 03:05 Creatinine 1.7 mg/dL (0.7-1.2) H 08/01/17 03:05 Estimated GFR 29 ml/min 08/01/17 03:05 BUN/Creatinine Ratio 15 % 08/01/17 03:05 Glucose 268 mg/dL (65-100) H 08/01/17 03:05 POC Glucose 128 (70-105) H 08/02/17 21:24 Lactic Acid 1.30 mmol/L (0.7-2.0) 07/31/17 19:09 Calcium 9.4 mg/dL (8.4-10.2) 08/01/17 03:05 Total Bilirubin 0.60 mg/dL (0.1-1.2) 07/31/17 07:29 Direct Bilirubin < 0.2 mg/dL (0-0.2) 07/31/17 07:29 Indirect Bilirubin 0.4 mg/dL 07/31/17 07:29 AST 22 units/L (5-40) 07/31/17 07:29 ALT 10 units/L (7-56) 07/31/17 07:29 Alkaline Phosphatase 86 units/L (35-129) 07/31/17 07:29 Ammonia 24.0 umol/L (25-60) L 07/31/17 19:09 Troponin T 0.016 ng/mL (0.00-0.029) 07/31/17 07:29 Total Protein 5.7 g/dL (6.3-8.2) L 07/31/17 07: Albumin 3.5 g/dL (3.9-5) L 07/31/17 07: Albumin/Globulin Ratio 1.6 % 07/31/17 07: TSH 2.060 mlU/mL (0.270-4.200) 07/31/17 07:29 Urine Color Yellow (Yellow) 08/02/17 04:00 Urine Turbidity Clear (Clear) 08/02/17 04:00 Urine pH 5.0 (5.0-7.0) 08/02/17 04:00 Ur Specific [place] 1.014 (1.003-1.030) 08/02/17 04:00 Urine Protein <15 mg/dl mg/dL (Negative) 08/02/17 04:00 Urine Glucose (UA) Neg mg/dL (Negative) 08/02/17 04:00 Urine Ketones Neg mg/dL (Negative) 08/02/17 04:00 Urine Blood Mod (Negative) 08/02/17 04:00 Urine Nitrite Pos (Negative) 08/02/17 04:00 Urine Bilirubin Neg (Negative) 08/02/17 04:00 Urine Urobilinogen < 2.0 mg/dL (<2.0) 08/02/17 04:00 Ur Leukocyte Esterase Neg (Negative) 08/02/17 04:00 Urine WBC (Auto) 8.0 /HPF (0.0-6.0) H 08/02/17 04:00 Urine RBC (Auto) 1.0 /HPF (0.0-6.0) 08/02/17 04:00 Urine Bacteria (Auto) 1+ /HPF (Negative) 08/02/17 04:00 Urine Mucus Few /HPF 08/02/17 04:00
--- NOTE | 2017-08-02 13:57 | Query- General ---
Eddie Varela Brianna Date:__08/02/2017 [employer] Cutting Machine Operator/CDS:___Little Phone#:__[phone] Exercise your independent professional judgment when responding to this query. Questions asked do not imply a particular answer is desired or expected. We greatly appreciate your clarification on this issue. Clinical Documentation States: 87 Year old female was admitted on 07/31/2017 because she has been agitated over the last 2 days. The IM (Dr. Goodson) H&P note states "Failure to thrive, worsening dementia chronic kidney disease." Clinical Findings Show (include reference to source document): Creatinine: 1.8 BUN: 26 Given the above clinical scenario can you please provide an appropriate diagnosis based on your knowledge of the patient: PHYSICIAN RESPONSE: [ ] Tubular Necrosis [ ] Medullary Necrosis [ ] Vasomotor Nephropathy [ ] Shock Kidney [ ] Tubular Nephrosis [ ] Renal Tubular Stasis [ ] Cortical Necrosis [ ] Acute Renal Failure (unspecified) [ ] Lower Tubular Nephrosis [ x] Other: CKD [ ] Not Applicable Present on Admission: [ x] Yes (Y) [ ] Clinically undeterminable (W) [ ]No(N) Please also document response in your Progress Notes and/or Discharge Summary and indicate if the condition was present on admission. MTDD
[2017-08-02] MEDS: BABY ASPIRIN PO SCH (17:41)
[2017-08-02] MEDS: ROCALTROL PO SCH (17:42)
[2017-08-03] MEDS: NOVOLOG SUB-Q SCH ×5 (00:32→22:00)
[2017-08-03] MEDS: SODIUM BICARBONATE PO SCH ×3 (00:34→23:00)
[2017-08-03] MEDS: NAMENDA PO SCH ×3 (00:35→23:00)
[2017-08-03] MEDS: LOPRESSOR PO SCH ×3 (00:35→23:00)
[2017-08-03] MEDS: APRESOLINE PO SCH ×3 (00:36→20:40)
[2017-08-03] MEDS: EXELON TD SCH ×2 (00:37→23:00)
[2017-08-03] MEDS: FEOSOL PO SCH ×2 (00:40→23:00)
[2017-08-03] MEDS ORDERED: APRESOLINE IV PRN (08:02)
[2017-08-03] MEDS: VITAMIN D3 PO SCH (10:19)
[2017-08-03] MEDS: PEPCID PO SCH (10:19)
[2017-08-03] MEDS: VITAMIN B-12 PO SCH (10:20)
[2017-08-03] MEDS: LOVENOX SUB-Q SCH (10:21)
[2017-08-03] MEDS: PROCARDIA XL PO SCH (10:25)
--- NOTE | 2017-08-03 12:26 | Progress Note ---
Assessment and Plan Assessment and plan: 87-year-old female with past medical history significant for dementia , hypertension, hyperlipidemia, CKD presented to the emergency department with complaints of the patient has been agitated over the last 2 days. Dementia with behavioral abnormalities - Could be her baseline - Continue memantine - Psych evaluation Hyperlipidemia - statin Hypertension - BP has been fluctuating, so may be a component of autonomic dysregulation - This morning he was really high and hydralazine when necessary was added CKD - Renal function is at baseline DVT prophylaxis - Heparin Disposition -Pending SNF placement History Interval history: Patient was seen and evaluated this morning, patient was alert but demented. No new complaints. Hospitalist Physical - Physical exam Narrative exam: Not in cardiopulmonary distress. The patient appeared well nourished and normally developed. Vital signs as documented. Head exam is unremarkable. No scleral icterus . Neck is without jugular venous distension, thyromegaly, or carotid bruits. Lungs are clear to auscultation. Cardiac exam reveals regular rate and Rhythm. First and second heart sounds normal. No murmurs, rubs or gallops. Abdominal exam reveals normal bowel sounds, no masses, no organomegaly and no aortic enlargement. Extremities are nonedematous and both femoral and pedal pulses are normal. [employer] IN[employer]: Alert. No focal weakness. - Constitutional Vitals: Temp Pulse Resp BP Pulse Ox 98.3 F 64 20 172/67 94 08/03/17 08:31 08/03/17 10:26 08/03/17 08:31 08/03/17 10:26 08/03/17 08:31 General appearance: Present: no acute distress, obese Results - Labs CBC & Chem 7: 08/01/17 03:05 08/01/17 03:05 Labs: Laboratory Last Values WBC 5.4 K/mm3 (4.5-11.0) 08/01/17 03:05 RBC 3.58 M/mm3 (3.65-5.03) L 08/01/17 03:05 Hgb 11.7 gm/dl (10.1-14.3) 08/01/17 03:05 Hct 34.8 % (30.3-42.9) 08/01/17 03:05 MCV 97 fl (79-97) 08/01/17 03:05 MCH 33 pg (28-32) H 08/01/17 03:05 MCHC 34 % (30-34) 08/01/17 03:05 RDW 14.8 % (13.2-15.2) 08/01/17 03:05 Plt Count 174 K/mm3 (140-440) 08/01/17 03:05 Lymph % (Auto) 19.1 % (13.4-35.0) 08/01/17 03:05 [place] % (Auto) 9.5 % (0.0-7.3) H 08/01/17 03:05 Eos % (Auto) 3.3 % (0.0-4.3) 08/01/17 03:05 Baso % (Auto) 0.6 % (0.0-1.8) 08/01/17 03:05 Lymph # 1.0 K/mm3 (1.2-5.4) L 08/01/17 03:05 [place] # 0.5 K/mm3 (0.0-0.8) 08/01/17 03:05 Eos # 0.2 K/mm3 (0.0-0.4) 08/01/17 03:05 Baso # 0.0 K/mm3 (0.0-0.1) 08/01/17 03:05 Add Manual Diff Complete 07/31/17 17:26 Total Counted 100 07/31/17 17:26 Seg Neutrophils % 67.5 % (40.0-70.0) 08/01/17 03:05 Seg Neuts % (Manual) 66.0 % (40.0-70.0) 07/31/17 17:26 Band Neutrophils % 0 % 07/31/17 17:26 Lymphocytes % (Manual) 19.0 % (13.4-35.0) 07/31/17 17:26 Reactive Lymphs % (Man) 0 % 07/31/17 17:26 Monocytes % (Manual) 8.0 % (0.0-7.3) H 07/31/17 17:26 Eosinophils % (Manual) 3.0 % (0.0-4.3) 07/31/17 17:26 Basophils % (Manual) 4.0 % (0.0-1.8) H 07/31/17 17:26 Metamyelocytes % 0 % 07/31/17 17:26 Myelocytes % 0 % 07/31/17 17:26 Promyelocytes % 0 % 07/31/17 17:26 Blast Cells % 0 % 07/31/17 17:26 Nucleated RBC % Not Reportable 07/31/17 17:26 Seg Neutrophils # 3.7 K/mm3 (1.8-7.7) 08/01/17 03:05 Seg Neutrophils # Man 3.7 K/mm3 (1.8-7.7) 07/31/17 17:26 Band Neutrophils # 0.0 K/mm3 07/31/17 17:26 Lymphocytes # (Manual) 1.1 K/mm3 (1.2-5.4) L 07/31/17 17:26 Abs React Lymphs (Man) 0.0 K/mm3 07/31/17 17:26 Monocytes # (Manual) 0.4 K/mm3 (0.0-0.8) 07/31/17 17:26 Eosinophils # (Manual) 0.2 K/mm3 (0.0-0.4) 07/31/17 17:26 Basophils # (Manual) 0.2 K/mm3 (0.0-0.1) H 07/31/17 17:26 Metamyelocytes # 0.0 K/mm3 07/31/17 17:26 Myelocytes # 0.0 K/mm3 07/31/17 17:26 Promyelocytes # 0.0 K/mm3 07/31/17 17:26 Blast Cells # 0.0 K/mm3 07/31/17 17:26 WBC Morphology Not Reportable 07/31/17 17:26 Hypersegmented Neuts Not Reportable 07/31/17 17:26 Hyposegmented Neuts Not Reportable 07/31/17 17:26 Hypogranular Neuts Not Reportable 07/31/17 17:26 Smudge Cells Not Reportable 07/31/17 17:26 Toxic Granulation Not Reportable 07/31/17 17:26 Toxic Vacuolation Not Reportable 07/31/17 17:26 Dohle Bodies Not Reportable 07/31/17 17:26 Pelger-Huet Anomaly Not Reportable 07/31/17 17:26 Avinash Rods Not Reportable 07/31/17 17:26 Platelet Estimate Consistent w auto 07/31/17 17:26 Clumped Platelets Not Reportable 07/31/17 17:26 Plt Clumps, EDTA Not Reportable 07/31/17 17:26 Large Platelets Not Reportable 07/31/17 17:26 Giant Platelets Not Reportable 07/31/17 17:26 Platelet Satelliting Not Reportable 07/31/17 17:26 Plt Morphology Comment Not Reportable 07/31/17 17:26 RBC Morphology Normal 07/31/17 17:26 Dimorphic RBCs Not Reportable 07/31/17 17:26 Polychromasia Not Reportable 07/31/17 17:26 Hypochromasia Not Reportable 07/31/17 17:26 Poikilocytosis Not Reportable 07/31/17 17:26 Anisocytosis Not Reportable 07/31/17 17:26 Microcytosis Not Reportable 07/31/17 17:26 Macrocytosis Not Reportable 07/31/17 17:26 Spherocytes Not Reportable 07/31/17 17:26 Pappenheimer Bodies Not Reportable 07/31/17 17:26 Sickle Cells Not Reportable 07/31/17 17:26 Target Cells Not Reportable 07/31/17 17:26 Tear Drop Cells Not Reportable 07/31/17 17:26 Ovalocytes Not Reportable 07/31/17 17:26 Helmet Cells Not Reportable 07/31/17 17:[address] [place] Bodies Not Reportable 07/31/17 17:26 [place] Rings Not Reportable 07/31/17 17:26 Rufe Cells Not Reportable 07/31/17 17:26 Bite Cells Not Reportable 07/31/17 17:26 Crenated Cell Not Reportable 07/31/17 17:26 Elliptocytes Not Reportable 07/31/17 17:26 Acanthocytes (Spur) Not Reportable 07/31/17 17:26 Rouleaux Not Reportable 07/31/17 17:26 Hemoglobin C Crystals Not Reportable 07/31/17 17:26 Schistocytes Not Reportable 07/31/17 17:26 Malaria parasites Not Reportable 07/31/17 17:26 Cristi Bodies Not Reportable 07/31/17 17:26 Hem Pathologist Commnt No 07/31/17 17:26 Sodium 143 mmol/L (137-145) 08/01/17 03:05 Potassium 4.1 mmol/L (3.6-5.0) 08/01/17 03:05 Chloride 102.5 mmol/L (98-107) 08/01/17 03:05 Carbon Dioxide 27 mmol/L (22-30) 08/01/17 03:05 Anion Gap 18 mmol/L 08/01/17 03:05 BUN 26 mg/dL (7-17) H 08/01/17 03:05 Creatinine 1.7 mg/dL (0.7-1.2) H 08/01/17 03:05 Estimated GFR 29 ml/min 08/01/17 03:05 BUN/Creatinine Ratio 15 % 08/01/17 03:05 Glucose 268 mg/dL (65-100) H 08/01/17 03:05 POC Glucose 158 (70-105) H 08/03/17 08:35 Lactic Acid 1.30 mmol/L (0.7-2.0) 07/31/17 19:09 Calcium 9.4 mg/dL (8.4-10.2) 08/01/17 03:05 Total Bilirubin 0.60 mg/dL (0.1-1.2) 07/31/17 07:29 Direct Bilirubin < 0.2 mg/dL (0-0.2) 07/31/17 07:29 Indirect Bilirubin 0.4 mg/dL 07/31/17 07:29 AST 22 units/L (5-40) 07/31/17 07:29 ALT 10 units/L (7-56) 07/31/17 07:29 Alkaline Phosphatase 86 units/L (35-129) 07/31/17 07:29 Ammonia 24.0 umol/L (25-60) L 07/31/17 19:09 Troponin T 0.016 ng/mL (0.00-0.029) 07/31/17 07:29 Total Protein 5.7 g/dL (6.3-8.2) L 07/31/17 07:29 Albumin 3.5 g/dL (3.9-5) L 07/31/17 07:29 Albumin/Globulin Ratio 1.6 % 07/31/17 07:29 TSH 2.060 mlU/mL (0.270-4.200) 07/31/17 07:29 Urine Color Yellow (Yellow) 08/02/17 04:00 Urine Turbidity Clear (Clear) 08/02/17 04:00 Urine pH 5.0 (5.0-7.0) 08/02/17 04:00 Ur Specific [place] 1.014 (1.003-1.030) 08/02/17 04:00 Urine Protein <15 mg/dl mg/dL (Negative) 08/02/17 04:00 Urine Glucose (UA) Neg mg/dL (Negative) 08/02/17 04:00 Urine Ketones Neg mg/dL (Negative) 08/02/17 04:00 Urine Blood Mod (Negative) 08/02/17 04:00 Urine Nitrite Pos (Negative) 08/02/17 04:00 Urine Bilirubin Neg (Negative) 08/02/17 04:00 Urine Urobilinogen < 2.0 mg/dL (<2.0) 08/02/17 04:00 Ur Leukocyte Esterase Neg (Negative) 08/02/17 04:00 Urine WBC (Auto) 8.0 /HPF (0.0-6.0) H 08/02/17 04:00 Urine RBC (Auto) 1.0 /HPF (0.0-6.0) 08/02/17 04:00 Urine Bacteria (Auto) 1+ /HPF (Negative) 08/02/17 04:00 Urine Mucus Few /HPF 08/02/17 04:00
[2017-08-03] MEDS ORDERED: APRESOLINE PO SCH (14:00)
[2017-08-03] MEDS: BABY ASPIRIN PO SCH (17:11)
[2017-08-03] MEDS: HEPARIN SUB-Q SCH (23:00)
--- NOTE | 2017-08-03 23:08 | Consultation ---
History of Present Illness - Reason for Consult Reason for consult: psych consult - Chief Complaint Chief complaint: CC:" was feeling good" 87 year old WF with prior h/o dementia presents to [facility] with altered mental change. We have been asked to see the patient. She notes that she isn't clear as to why we are here. She notes her mood being fine. She denies any depression, euphoria, or psychosis. She denies any SI/HI/AH/VH. She is confused and isn't oriented to anything except self. Overall she notes "I'm fine". She is sitting in bed calm with any current agitation. Medications and Allergies Allergies Allergy/AdvReac Type Severity Reaction Status Date / Time No Known Allergies Allergy Verified 01/10/15 23:52 Home Medications Medication Instructions Recorded Confirmed Last Taken Type Aspirin [Aspirin BABY CHEW TAB] 162 mg PO QPM 02/08/15 07/31/17 05/29/17 History Calcitriol [Rocaltrol] 0.25 mcg PO 5XW 02/08/15 07/31/17 07/31/17 History Memantine HCl [Namenda Xr] 28 mg PO DAILY 02/08/15 07/31/17 07/31/17 History Rivastigmine [Exelon Patch 9.5 mg TD HS 02/08/15 07/31/17 05/29/17 History 9.5mg/24hr] Metoprolol [Lopressor TAB] 25 mg PO BID 04/20/17 07/31/17 07/31/17 History Sertraline [Zoloft] 50 mg PO DAILY 04/20/17 07/31/17 07/31/17 History Sodium Bicarbonate 2 tab PO BID 04/20/17 07/31/17 07/31/17 History hydrALAZINE [Apresoline TAB] 25 mg PO BID 04/20/17 07/31/17 07/31/17 History Cholecalciferol (Vitamin D3) 5,000 unit PO DAILY 05/30/17 07/31/17 07/31/17 History [Vitamin D3] Cranberry Concentrate Softgel 1 cap PO DAILY 05/30/17 07/31/17 07/31/17 History Cyanocobalamin (Vitamin B-12) 2,500 mcg PO DAILY 11/02/17 01/03/18 01/03/18 History [Vitamin B12] Ferrous Sulfate [Feosol 325 MG tab] 325 mg PO HS 05/30/17 07/31/17 05/29/17 History Insulin Aspart [NovoLOG Flexpen] 0 units SQ ACHS PRN 05/30/17 07/31/17 05/30/17 09:00 History Insulin Detemir [Levemir Flextouch] 25 - 30 unit SQ QAM 05/30/17 07/31/17 History NIFEdipine XL [Procardia Xl] 90 mg PO DAILY 05/30/17 07/31/17 07/31/17 History Quetiapine Fumarate [SEROquel] 100 mg PO HS 05/30/17 07/31/17 07/31/17 History Ranitidine HCl [Zantac 150 MG TAB] 150 mg PO DAILY 05/30/17 07/31/17 07/31/17 History Active Meds: Active Medications Acetaminophen (Tylenol) 650 mg PO Q4H PRN PRN Reason: Pain MILD(1-3)/Fever >100.5/WAGNER Last Admin: 08/02/17 11:21 Dose: 650 mg Aspirin (Baby Aspirin) 162 mg PO QPM [facility] Last Admin: 08/03/17 17:11 Dose: 162 mg Bisacodyl (Dulcolax) 10 mg OK QDAY PRN PRN Reason: Constipation unrelieved by MOM Calcitriol (Rocaltrol) 0.25 mcg PO MoTuWeThFr [facility] Last Admin: 08/02/17 17:42 Dose: 0.25 mcg Cholecalciferol (Vitamin D3) 5,000 unit PO DAILY [facility] Last Admin: 08/03/17 10:19 Dose: 5,000 unit Cyanocobalamin (Vitamin B-12) 2,500 mcg PO DAILY [facility] Last Admin: 08/03/17 10:20 Dose: 2,500 mcg Dextrose (D50w (25gm) Syringe) 50 ml IV PRN PRN PRN Reason: Hypoglycemia Famotidine (Pepcid) 20 mg PO DAILY [facility] Last Admin: 08/03/17 10:19 Dose: 20 mg Ferrous Sulfate (Feosol) 325 mg PO HS [facility] Last Admin: 08/03/17 00:40 Dose: 325 mg Heparin Sodium (Porcine) (Heparin) 5,000 unit SUB-Q Q12HR [facility] Hydralazine HCl (Apresoline) 10 mg IV Q4HR PRN PRN Reason: HTN SYS BP>160 Last Admin: 08/03/17 17:10 Dose: 10 mg Hydralazine HCl (Apresoline) 100 mg PO TID [facility] Last Admin: 08/03/17 14:00 Dose: Not Given Insulin Aspart (Novolog) 0 units SUB-Q ACHS NATE PRN Reason: Protocol Last Admin: 08/03/17 19:04 Dose: 4 units Levofloxacin (Levaquin) 500 mg PO Q48HR [facility] Last Admin: 08/02/17 09:01 Dose: 500 mg Magnesium Hydroxide (Milk Of Magnesia) 30 ml PO Q4H PRN PRN Reason: Constipation Memantine (Namenda) 10 mg PO Q12HR [facility] Last Admin: 08/03/17 10:19 Dose: 10 mg Metoprolol Tartrate (Lopressor) 25 mg PO BID [facility] Last Admin: 08/03/17 10:26 Dose: 25 mg Nifedipine (Procardia Xl) 90 mg PO DAILY [facility] Last Admin: 08/03/17 10:25 Dose: 90 mg Ondansetron HCl (Zofran) 4 mg IV Q8H PRN PRN Reason: N/V unrelieved by Reglan Rivastigmine (Exelon) 9.5 mg TD HS [facility] Last Admin: 08/03/17 00:37 Dose: 9.5 mg Sodium Bicarbonate (Sodium Bicarbonate) 1,300 mg PO BID [facility] Last Admin: 08/03/17 10:20 Dose: 1,300 mg Past psychiatric history - Past Medical History Past Medical History: hypertension, other (chronic kidney disease) - past Psychiatric treatment and history psychiatric treatment history: Inpt/Outpt: patient unable to say Family psych history, substance history, prior Suicide history: pt denies - Social History Social history: other (patient unable to remember, she states that she lives with her , 2 children, no work, high school grad) Mental Status Exam - Vital signs Last Vital Signs Temp 98.3 F 08/03/17 08:31 Pulse 61 08/03/17 17:10 Resp 20 08/03/17 08:31 BP 171/60 08/03/17 17:10 Pulse Ox 94 08/03/17 08:31 - Exam Orientation: person Affect: other (mood congruent) Mood: other ("fine") Thought content: other (impoverished) Thought Process: Disoriented Perceptions: none Speech: normal rate and pattern Concentration: distractible Motor activity: normal Level of consciousness: confused Memory: Recent Impaired, Remote Impaired Mini mental status exam(if necessary): 0-17 Results Result Diagrams: 08/01/17 03:05 08/01/17 03:05 Abnormal lab results 08/03/17 08/03/17 08/03/17 Range/Units 08:35 12:36 17:07 POC Glucose 158 H 181 H 202 H (70-105) All other labs normal. Assessment and Plan Assessment and plan: 87 year old WF with prior h/o dementia presents to [facility] with altered mental change. We have been asked to see the patient. She notes that she isn't clear as to why we are here. Patient remains confused with advanced dementia. When seen, patient wasn't agitated. A/P Alzheimer's dementia- continue treatment with exelon. No additional meds until her routine of sleep and awake cycle established or acute agitation while in the hospital- at which point 0.5mg ativan prn can be used. Will follow.
[2017-08-04] MEDS: NOVOLOG SUB-Q SCH ×4 (09:30→22:45)
[2017-08-04] MEDS: SODIUM BICARBONATE PO SCH ×2 (09:31→22:44)
[2017-08-04] MEDS: NAMENDA PO SCH ×2 (09:31→22:44)
[2017-08-04] MEDS: VITAMIN D3 PO SCH (09:32)
[2017-08-04] MEDS: VITAMIN B-12 PO SCH (09:32)
[2017-08-04] MEDS: PEPCID PO SCH (09:33)
[2017-08-04] MEDS: LEVAQUIN PO SCH (09:33)
[2017-08-04] MEDS: PROCARDIA XL PO SCH (09:33)
[2017-08-04] MEDS: LOPRESSOR PO SCH ×2 (09:34→22:43)
[2017-08-04] MEDS: APRESOLINE PO SCH ×3 (09:35→20:20)
[2017-08-04] MEDS: HEPARIN SUB-Q SCH ×2 (09:35→22:45)
--- NOTE | 2017-08-04 12:15 | Progress Note ---
Assessment and Plan Assessment and Plan Assessment and plan: 87-year-old female with past medical history significant for dementia , hypertension, hyperlipidemia, CKD presented to the emergency department with complaints of the patient has been agitated over the last 2 days. Dementia with behavioral abnormalities - Could be her baseline - Continue memantine - Psych evaluation Hyperlipidemia - statin Hypertension - BP has been fluctuating, so may be a component of autonomic dysregulation - This morning he was really high and hydralazine when necessary was added CKD - Renal function is at baseline DVT prophylaxis - Heparin Disposition -Pending SNF placement Subjective Date of service: 08/04/17 Objective - Constitutional Vitals: Vital Signs - 12hr 08/04/17 08/04/17 08/04/17 03:30 09:12 09:34 Temperature 98.6 F 98.5 F Pulse Rate 66 67 66 Respiratory 18 18 Rate Blood Pressure 134/44 155/51 155/51 O2 Sat by Pulse 96 93 Oximetry General appearance: Present: no acute distress, well-nourished - EENT Eyes: PERRL, EOM intact ENT: hearing intact, clear oral mucosa Ears: bilateral: normal - Neck Neck: supple, normal ROM - Respiratory Respiratory effort: normal Respiratory: bilateral: CTA - Breasts Breasts: normal - Cardiovascular Rhythm: regular Heart Sounds: Present: S1 & S2. Absent: gallop, rub Extremities: pulses intact, No edema, normal color, Full ROM - Gastrointestinal General gastrointestinal: Present: soft, non-tender, non-distended, normal bowel sounds - Genitourinary Female genitourinary: normal - Integumentary Integumentary: clear, warm, dry - Musculoskeletal Musculoskeletal: 1, strength equal bilaterally - Neurologic Neurologic: moves all extremities - Psychiatric Psychiatric: memory intact, appropriate mood/affect, intact judgment & insight - Labs CBC & Chem 7: 08/01/17 03:05 08/01/17 03:05 Labs: Abnormal lab results 08/03/17 08/03/17 08/03/17 Range/Units 12:36 17:07 23:14 POC Glucose 181 H 202 H 168 H (70-105) 08/04/17 08/04/17 Range/Units 07:49 12:00 POC Glucose 191 H 193 H (70-105)
[2017-08-04] MEDS: BABY ASPIRIN PO SCH (18:18)
[2017-08-04] MEDS: FEOSOL PO SCH (22:44)
[2017-08-04] MEDS: EXELON TD SCH (22:45)
[2017-08-05] MEDS: NOVOLOG SUB-Q SCH ×2 (08:30→12:17)
[2017-08-05] MEDS: APRESOLINE PO SCH ×2 (08:42→13:41)
--- NOTE | 2017-08-05 09:41 | Progress Note ---
Subjective - Reason for Consult Consult date: 08/05/17 Reason for consult: Psychiatry Follow-up - Chief Complaint Chief complaint: "Good morning" 87 year old WF with prior h/o dementia presents to [facility] with altered mental change. Today patient is calm and cooperative during the assessment. She was able to tell me her and that she lives with family. She was not able to ID the current/past [place] President and recall numbers within 5 mins. Per observation, patient ate 75% of her breakfast. Per her assigned RN, the patient had no behavioral disturbance overnight. She denies SI/HI's and AVH' s. Mental Status Exam - Vital signs Last Vital Signs Temp 98.7 F 08/05/17 07:24 Pulse 61 08/05/17 07:24 Resp 18 08/05/17 07:24 BP 151/57 08/05/17 07:24 Pulse Ox 96 08/05/17 07:24 - Exam Narrative exam: MSE: Appearance: calm, cooperative Behavior: good eye contact Speech: regular rate and tone Mood: "okay" Affect: congruent to mood Thought Process: unable to assess Thought Content: denies SI/HI's and AVH's Motor Activity: ambulatory Cognition: confused Insight: limited Judgment: limited Assessment and Plan Impression: Hx of Dementia. Today patient is calm and cooperative during the assessment Recommendation/Plan: Continue Exelon 9.5 TD HS for dementia and Namenda 10 mg PO Q12 for dementia. Recommend the followin. Frequently reorient patient and explain procedures, tests, and medications. 2. Lights on and shades open during daytime hours. 3. Try to avoid unnecessary interruptions to sleep during nighttime hours. 4. Obtain glasses, hearing aids from home if patient uses these at baseline. 5. Avoid medications that may exacerbate delirium (especially narcotics, barbiturates, ambien, lunesta, benzos, and medications with excessive anticholinergic properties).
[2017-08-05] MEDS: VITAMIN B-12 PO SCH (09:55)
[2017-08-05] MEDS: SODIUM BICARBONATE PO SCH (09:55)
[2017-08-05] MEDS: PEPCID PO SCH (09:56)
[2017-08-05] MEDS: VITAMIN D3 PO SCH (09:56)
[2017-08-05] MEDS: NAMENDA PO SCH (09:56)
[2017-08-05] MEDS: HEPARIN SUB-Q SCH (09:57)
[2017-08-05] MEDS: LOPRESSOR PO SCH (09:57)
[2017-08-05] MEDS: PROCARDIA XL PO SCH (09:57)
[2017-08-05] MEDS: ROCALTROL PO SCH (12:18)
[2017-08-05 13:44] VITALS: BP 117/43
--- NOTE | 2017-08-05 14:17 | Discharge Summary ---
Providers - Providers Date of Admission: 07/31/17 21:59 Date of discharge: 08/05/17 Attending physician: SULMA COONEY 08/01/17 16:34 Consult to Case Management [CONS] Routine Services Needed at Discharge: Physical Therapy Notified:: DAYANA 08/01/17 16:35 Physical Therapy Evaluation and Treat [CONS] Routine Comment: Reason For Exam: deconditioning 08/02/17 11:39 Consult to Mental Health [CONS] Routine Reason For Exam: dementia with behavioral abnormalities Place consult to:: mental health Notified:: YES If yes, spoke with:: SENTHIL Time called:: 11:53 Comment:: ELIZABETH Primary care physician: DUCO POLISHER Hospitalization Condition: Stable Pertinent studies: Head CT showed no acute intracranial process S x-ray showed no acute cardiopulmonary process Hospital course: 87-year-old female with past medical history significant for dementia , hypertension, hyperlipidemia, CKD presented to the emergency department with complaints of the patient has been agitated over the last 2 days. Discharge diagnoses Dementia with behavioral abnormalities Hyperlipidemia Hypertension CKD DVT prophylaxis Disposition: DC/[place]-03 SNF W [facility] Core Measure Documentation - Palliative Care Palliative Care/ Comfort Measures: Not Applicable - Core Measures Any of the following diagnoses?: none Exam - Constitutional Vitals: Temp Pulse Resp BP Pulse Ox 98.8 F 64 18 117/43 96 08/05/17 13:39 08/05/17 13:44 08/05/17 13:39 08/05/17 13:39 08/05/17 10:00 General appearance: Present: no acute distress, well-nourished - EENT Eyes: Present: PERRL ENT: hearing intact, clear oral mucosa - Neck Neck: Present: supple, normal ROM - Respiratory Respiratory effort: normal Respiratory: bilateral: CTA - Cardiovascular Heart Sounds: Present: S1 & S2. Absent: rub, click - Extremities Extremities: pulses symmetrical, No edema Peripheral Pulses: within normal limits - Abdominal General gastrointestinal: Present: soft, non-tender Female genitourinary: Present: deferred - Rectal Rectal Exam: deferred - Integumentary Integumentary: Present: clear, warm, dry - Musculoskeletal Musculoskeletal: strength equal bilaterally - Psychiatric Psychiatric: cooperative, other (calm) - Neurologic Neurologic: moves all extremities - Allied Health Allied health notes reviewed: nursing Plan Activity: advance as tolerated, fall precautions Weight Bearing Status: Weight Bear as Tolerated Diet: low fat, low cholesterol, low salt, diabetic Follow up with: PRIMARY CARE, [Primary Care Provider] - 3-5 Days
== END 2017-08-05 16:45 | disposition home or self-care (01) | DRG 57 ==
LOC: ED 13:54 → 2B-ACE 21:59
PROVIDERS: ADMIT Internal Medicine; ATTEND Internal Medicine
DX: G30.9 Alzheimer's disease, unspecified (principal); F02.81 Dementia in other diseases classified elsewhere, unspecified severity, with behavioral disturbance; R62.7 Adult failure to thrive; N18.9 Chronic kidney disease, unspecified; E78.5 Hyperlipidemia, unspecified; E11.22 Type 2 diabetes mellitus with diabetic chronic kidney disease; E78.00 Pure hypercholesterolemia, unspecified; I12.9 Hypertensive chronic kidney disease with stage 1 through stage 4 chronic kidney disease, or unspecified chronic kidney disease; Z90.710 Acquired absence of both cervix and uterus; Z90.49 Acquired absence of other specified parts of digestive tract; Z79.82 Long term (current) use of aspirin; Z79.899 Other long term (current) drug therapy; Z79.4 Long term (current) use of insulin; Z87.440 Personal history of urinary (tract) infections
CPT/HCPCS: 36415; 70450; 71045; 80048; 80074; 81001; 82140; 82962; 84443; 84484; 85007; 85025; 93005; 93010; G8978-GP; G8979-GP; J0360; J1644; J1650; J1815